=== PATIENT | female | born 1980 | race Caucasian/White ===

== ENCOUNTER 2017-04-15 16:32 | Inpatient (IN) | payer OTHER, SELFPAY ==
[2017-04-15] VITALS (7 sets, daily range): BP systolic 98–138; BP diastolic 63–83; PULSE 85–112; RESP 18–20; TEMP 36.8–38.1; O2SAT 94–96; BMI 48.4; BMI 51.1
--- NOTE | 2017-04-15 17:00 | EKG12_ITS ---
Test Reason : DYSRHYTHMIA Blood Pressure : / mmHG Vent. Rate : 105 BPM Atrial Rate : 105 BPM P-R Int : 174 ms QRS Dur : 104 ms QT Int : 362 ms P-R-T Axes : 020 091 116 degrees QTc Int : 478 ms AGE AND GENDER SPECIFIC ECG ANALYSIS Sinus tachycardia Consider right ventricular involvement in acute inferior infarct Abnormal ECG Confirmed by NAHID FERNANDEZ, IMTIAZ ([id number]), primer expeditor and drier PEDRO PABLO MIRAMONTES ([id number]) on 04/18/2017 1:38:54 PM Referred By: PROSPER Confirmed By:IMTIAZ WHITFIELD MD
--- NOTE | 2017-04-15 17:04 | NURSING ---
NO OLD EKGS
--- NOTE | 2017-04-15 17:30 | EKG12_ITS ---
Test Reason : REPEAT Blood Pressure : / mmHG Vent. Rate : 102 BPM Atrial Rate : 102 BPM P-R Int : 176 ms QRS Dur : 104 ms QT Int : 352 ms P-R-T Axes : 012 061 113 degrees QTc Int : 458 ms AGE AND GENDER SPECIFIC ECG ANALYSIS Sinus tachycardia Diffuse T wave inversion Consider right ventricular involvement in acute inferior infarct Abnormal ECG Confirmed by NAHID FERNANDEZ, IMTIAZ ([id number]), makeup editor PEDRO PABLO MIRAMONTES ([id number]) on 04/19/2017 12:57:55 PM Referred By: PROSPER Confirmed By:IMTIAZ WHITFIELD MD
[2017-04-15] MEDS: Acetaminophen 325 MG Tablet 650 MG PO (17:36)
[2017-04-15] MEDS: 0.9% Normal Saline 1,000 ML 1000 ML IV (17:37)
[2017-04-15] MEDS: Ondansetron 4 MG/2 ML Vial IV (17:37)
[2017-04-15 17:45] LABS: Hematocrit 38.5 % (37-47); Lymphocyte % 2.5 % (19-41); Mean Corp Hgb Conc 33.8 g/gl (32-36); Mean Corpuscular Hgb 27.7 pg (27.0-32.0); Mean Corpuscular Volume 81.9 fL (81-99); Monocyte% 1.5 % (0-10); Neutrophil % 95.4 % (47-70); Platelet Count 183 K/mm3 (150-450); RBC Distribution Width CV 14.2 % (11.6-14.6); RBC Distribution Width SD 42.6 fl (35.1-43.9); White Blood Count 21.3 K/mm3 (4.4-11.0)
[2017-04-15 17:46] LABS: Absolute Lymphocyte Count 0.53 X10^3/ul (0.83-4.51); Absolute Neutrophil Count 20.3 X10^3/uL (2.0-7.7); Basophil# 0.01 X10^3/uL; International Normalized Ratio 1.5; Lymphocyte # 0.53 X10^3/ul (4.0); Monocyte# 0.31 X10^3/uL; Prothrombin Time (Protime)PT. 17.4 SECONDS (11.7-14.9)
[2017-04-15 17:47] LABS: Differential Indicated SCAN CRITERIA MET; POSITIVE COUNT NO; POSITIVE DIFFERENTIAL YES; POSITIVE MORPHOLOGY YES; Partial Thromboplast Time 41.9 Seconds (24.1-36.2)
[2017-04-15 17:57] LABS: AST(SGOT) 27 U/L (15-37); Alanine Aminotransfer ALT/SGPT 24 U/L (13-56); Albumin, Serum 3.2 g/dL (3.2-5.0); Alkaline Phosphatase 42 U/L (45-117); Anion Gap 12 (5-15); BUN 13 mg/dL (7-18); BUN/Creat Ratio 13.8 RATIO (10-20); Chloride 98 mmol/L (98-107); Creatinine, Serum 0.94 mg/dL (0.55-1.02); EST Glomerular Filtration Rate 71 mL/min (>60); Est Glom Filt Rate - Afr Amer 86 mL/min (>60); Globulin 4.2 g/dL (2.2-4.2); Glucose 124 mg/dL (74-106); Potassium 3.3 mmol/L (3.5-5.1); Protein, Total 7.4 g/dL (6.4-8.2); Sodium Level 132 mmol/L (136-145)
[2017-04-15 18:02] LABS: Lactic Acid 1.7 mmol/L (0.4-2.0)
[2017-04-15 18:14] LABS: hCG Titer Quant., Serum < 1 mIU/mL (<9 non-preg)
--- NOTE | 2017-04-15 18:20 | NURSING ---
DR ERASTO CHENG
--- NOTE | 2017-04-15 18:31 | ED.DCSUM_ITS ---
- ER Visit Summary Date of Service: 04/15/17 Chief Complaint: Fever, chills, sweats, GI symptoms and redness left lower extremity History of Present Illness: The patient is a 36 F who presents because her right lower extremity is red and swollen. She states 3 days ago she noted a break in the skin between her left second and third toe. Last evening she had fever with chills diaphoresis and then reported having nausea, vomiting diarrhea. She reports 6 episodes of vomiting with no coffee grounds or obvious blood and 4 5 brown watery loose stools without blood or mucus. She stated this morning her temperature was 104.0?F and she noted her leg was red. She states she has orthostatic symptoms. states her appetite has been diminished. She has never had a foot or leg infection in the past. There is no history of trauma. Patient is on Metformin for polycystic ovarian syndrome. 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 She had surgery for a septal defect at the age of 6. The facility she was last at 1 year ago was contacted and they report they have no old EKGs to compare to. Physical Examination: Patient appears ill. She is tachycardic, tachypnic, febrile. She is not hypoxic. Blood pressure 136/70. Head is atraumatic normocephalic. Pupils are equal round reactive. Extraocular muscles are intact. TMs are pearly white with landmarks noted. Nares patent with no drainage. Posterior pharynx without erythema or exudate. Uvula is midline. There is no dysphonia or dysphasia. Trachea is midline. There is no stridor with auscultation of the neck. Face is flushed. Heart is rapid and regular without murmur, gallop or rub. Lungs are clear to auscultation with good mirror bilaterally. Abdomen is soft with no guarding or perineal findings. There is no CVA tenderness noted. Examination of the left lower extremity reveals cellulitis inferior the patella and is circumferential involving the left leg and foot. DP and PT pulses are palpable. There is break in the skin between the second and third toe and there is also a callus noted. There is no evidence of fungal infection. Neuro exam is nonfocal Test Results: Count is elevated 21,000. Troponin is less than 0.02. Lactate was 1.7, which is normal. Coags reveal elevated INR PTT. Hepatic profile markable for a total bili of 2.4 with a direct of 0.4. Alk phos is low. ALT and AST are normal. Serum test was negative. Electrolyte panel is remarkable for glucose of 124. Emergency Department Course and Treatment: Sepsis workup was undertaken. Appropriate blood work was ordered as well as blood cultures and she received 1 L of normal saline wide open, 6 and 50 mg of Tylenol p.o. and 4.5 g of Zosyn IV piggyback. Her first EKG was abnormal a second was obtained and reveals no change. I am in disagreement with the EKG interpretation. There is 0.[address] elevation in lead III. There is 0.[address] depression in V2 and V3. Repeat EKG is unchanged. This does not meet criteria for ST elevation IN. This may be residual effect from her septal defect repair and or viral cardiomyopathy. Treatment Plan: The hospitalist was contacted for full admission to the hospital Disposition: Admit Impression: 1. Sepsis 2. Left leg and foot cellulitis 3. Hyperglycemia 3. Elevated bilirubin 4. Abnormal EKG uncertain etiology 5. History of viral cardiomyopathy 6. Sinus tachycardia documented on monitor and EKG This note was generated with [employer] dictation software. It may contain incorrect words, spelling, and punctuation that were not noted in review of the chart prior to signing ED Disposition - Plan for ED Patient: Chief Complaint: Cellulitis Referrals: Margaret Andino MD [Primary Care Provider] -
[2017-04-15 18:39] LABS: Platelet Estimate ADEQUATE (ADEQ); Vacuolated Cells 1+
[2017-04-15 18:40] LABS: Differential Comment SCANNED
[2017-04-15] MEDS: 0.9% Normal Saline 1,000 ML 150 ML IV (19:58)
--- NOTE | 2017-04-15 20:45 | PCM.HP.STD ---
Problem List (1) Sepsis Status: Acute (2) Cellulitis Status: Acute (3) Viral cardiomyopathy Status: Acute (4) Hyperglycemia Status: Acute History of Present Illness Date of Admission: 04/15/17 Chief Complaint: Sepsis secondary to cellulitis The patient is a 36 year old female w/ h/o polycystic ovary syndrome, depression, HTN, and viral cardiomyopathy admitted for sepsis secondary to left foot cellulitis. Pt had sudden onset of severe dull-aching abdominal pain yesterday in the evening hours. Nothing made it better or worse. Pain got progressively worse into the night. No radiation of pain. No new food. who ate similar food was without symptoms. She had loose watery nonbloody stool every hours and continued into the night. She also developed nausea and vomiting. She had chill. She also noted swelling in her left leg this morning. She had fever to 104.0 in the morning. She had a left foot blister that broke several days ago. She has no other compliant. Past Medical History Allergies bupropion [From Wellbutrin] Adverse Reaction (Intermediate, Verified 06/09/16 09:41) Other increased suicidal ideations aspirin [ASA] Adverse Reaction (Verified 06/09/16 09:41) Upset Stomach Home Medications: Ambulatory Orders Medication Instructions Recorded Cetirizine HCl [Zyrtec] 10 mg PO DAILY 06/09/16 Furosemide [Lasix] 20 mg PO DAILY PRN 06/09/16 Lisinopril [Zestril] 2.5 mg PO DAILY 06/09/16 Metformin HCl [Glucophage] 500 mg PO DAILY 06/09/16 Spironolactone [Aldactone] 25 mg PO DAILY 06/09/16 Trazodone HCl [Desyrel] 50 - 100 mg PO QHS 06/09/16 Venlafaxine HCl [Effexor] 225 mg PO DAILY 06/09/16 Carvedilol [Carvedilol] 25 mg PO BID 04/15/17 Surgical History: no surgical history Lives: Spouse/ Significant Other Smoking Status: Former smoker Tobacco Use: Non-smoker Alcohol: None Drugs: None - *Family History Maternal History Items: No pertinent history Review of Systems Constitutional: Reports: Chills, Fever, Weakness. Denies: Weight Change HEENT: Denies: Head Aches, Sinus Congestion, Sinus Drainage Cardiovascular: Denies: Chest Pain, Palpitations Respiratory: Denies: Cough, Shortness of breath at rest, Sputum production Gastrointestinal: Denies: Abdominal Pain, Nausea, Vomiting Genitourinary: Denies: Dysuria Musculoskeletal: Denies: Joint Pain, Joint Tenderness Skin: Reports: Rash. Denies: Wounds Neurological: Denies: Numbness, Tingling, Focal weakness Psychiatric: Denies: Anxiety, Depression, Homicidal Ideations, Suicidal Ideations Hematologic/ Lymphatic: Denies: Easy Bruising, Easy Bleeding VTE Information - Inpt Only VTE Present on Admission: No VTE Mechan Device Prophylaxis: SCD's VTE Pharm Prophylaxis ordered?: Yes Patient Problems: Active and Suspected Problems Sepsis (Acute) Cellulitis (Acute) Viral cardiomyopathy (Acute) Hyperglycemia (Acute) - Physical Exam General: Alert, Oriented x3, Cooperative HEENT: Atraumatic, PERRLA, EOMI, Normocephalic Neck: Supple, No JVD, Negative Carotid Bruits Lungs: Clear to auscultation, Normal air movement Cardiovascular: Regular rate, No murmurs Abdomen: Bowel Sounds Present, Soft, Non Tender Extremities: No edema, Capillary Refill Less than 3 Seconds, - - Left foot cellulitis Skin: No rashes, No breakdown Musculoskeletal: No Tenderness to Palpation of Joints or Extremities Neurological: Cranial nerves II-XII grossly intact Psych/Mental Status: Normal Affect, Appropriate Vital Signs Temp Pulse Resp BP Pulse Ox 98.3 F 85 18 98/63 94 04/15/17 19:40 04/15/17 19:40 04/15/17 19:40 04/15/17 19:40 04/15/17 20:10 Oxygen Delivery Method Room Air Weight: 143.7 kg Body Mass Index (BMI) 51.1 Assessment/Plan Active and Suspected Problems Sepsis (Acute) Cellulitis (Acute) Viral cardiomyopathy (Acute) Hyperglycemia (Acute) 36 year old female w/ h/o polycystic ovary syndrome, depression, HTN, and viral cardiomyopathy admitted for sepsis secondary to left foot cellulitis. 1) Sepsis secondary to eft foot cellulitis: C/w zosyn. Culture pending. Fluid resuscitation. 2) Abnormal EKG: EKG disclosed 0.5mmST elevation in lead III and 0.[address] depression in V2 and V3. H/o viral cardiomyopathy 5 years ago at the [facility]. H/o septal defect surgery when 6 year old. No chest pain. No SOB or diaphoresis. Will repeat EKG in AM. ECHO in AM. Serial trops. 3) Hyponatremia and hypokalemia: Replace potassium. Hydration. Most likely secondary diarrhea and n.v, ie GI loss. Hold diuretics. Surveillance lab in AM. 4) Polycystic ovary syndrome: C/w Metformin. 5) Chronic issues: HTN and depression: Resume home meds. 6) Prophylaxis: Heparin.
[2017-04-15] MEDS: Famotidine 20 MG Tablet PO (21:16)
[2017-04-15] MEDS: Piperacil/Tazobactam 3.375 GM/50 ML ML IV (21:16)
[2017-04-16] VITALS (11 sets, daily range): BP systolic 111–135; BP diastolic 68–95; PULSE 94–109; RESP 16–18; TEMP 36.8–38.1; O2SAT 98–100
[2017-04-16] MEDS: 0.9% NaCl Peripheral Flush Adult/Peds IV ×4 (00:10→16:36)
[2017-04-16] MEDS: Acetaminophen 325 MG Tablet 650 MG PO ×3 (00:10→16:37)
[2017-04-16] MEDS: Ondansetron 4 MG/2 ML Vial IV ×3 (00:10→16:36)
[2017-04-16 00:27] LABS: Bacteria 0 SEEN /hpf (None Seen); Mucous, Urine 0 SEEN /hpf (<or=2+); Red Blood Cells-Urine 0 SEEN /hpf (0-5)
[2017-04-16 00:33] LABS: Glucose, Dipstick Normal (Normal); Ketone-Dipstick Negative (Negative); Leukocyte Esterase-Dipstick 100 /ul (Negative); Nitrite-Dipstick Negative (Negative); Occult Blood-Urine 10 /ul (Negative); Protein-Dipstick 30 mg/dl (Negative); Urine Bilirubin Dipstick Negative (Negative); Urine Urobilinogen Normal (Normal)
[2017-04-16 00:34] LABS: Color, Urine Yellow (Yellow); Urine Clarity Clear (Clear)
[2017-04-16 00:54] LABS: Squamous Epithelial Cells - UA 25-50 SEEN /hpf (5-10); White Blood Cells 5-10 SEEN /hpf (0-5)
[2017-04-16] MEDS: 0.9% Normal Saline 1,000 ML 150 ML IV ×3 (02:30→21:19)
[2017-04-16] MEDS: Piperacil/Tazobactam 3.375 GM/50 ML ML IV ×3 (05:00→21:35)
--- NOTE | 2017-04-16 05:55 | EKG12_ITS ---
Test Reason : AM EKG Blood Pressure : / mmHG Vent. Rate : 107 BPM Atrial Rate : 107 BPM P-R Int : 174 ms QRS Dur : 104 ms QT Int : 342 ms P-R-T Axes : 016 027 090 degrees QTc Int : 456 ms Sinus tachycardia Nonspecific ST and T wave abnormality Abnormal ECG No previous ECGs available Confirmed by NAHID FERNANDEZ, IMTIAZ ([id number]), editorial assistant PEDRO PABLO MIRAMONTES ([id number]) on 04/18/2017 2:44:47 PM Referred By: DR PUENTES Confirmed By:IMTIAZ WHITFIELD MD
--- NOTE | 2017-04-16 05:55 | ECHOD_ITS ---
Reason For Study: ABN EKG Procedure This was a 2D Doppler, Color Flow transthoracic echocardiogram. Contrast injection was performed. The exam was of fair technical quality due to body habitus. Exam performed portable in patient room. Left Ventricle Normal LV size. Left ventricular systolic function is normal. The estimated ejection fraction is 60 %. No evidence for diastolic dysfunction. No regional wall motion abnormalities noted. Right Ventricle Normal RV size. Normal systolic function. Atria Normal left atrium. Normal right atrium. Mitral Valve Normal mitral valve. Tricuspid Valve Normal tricuspid valve. Mild (1+) tricuspid valve insufficiency. Pulmonary artery systolic pressure is 35 mmHg. Aortic Valve Normal aortic valve. Pulmonic Valve The pulmonic valve is not well visualized. Great Vessels Normal aortic root. The pulmonary artery is normal size. Normal inferior vena cava. Pericardium/Pleural No pericardial effusion. Medication Diluted definity 4ml given slow IV push to enhance endocardial definition. MMode/2D Measurements & Calculations LVIDd: 5.7 cm IVSd: 1.1 cm LA dimension: 4.8 cm LVIDs: 4.3 cm LVPWd: 1.2 cm RVDd: 4.8 cm FS: 23.4 % LAV(MOD-bp): 47.1 ml EDV(MOD-sp4): 151.9 ml EDV(MOD-sp2): 170.9 ml LAV(MOD-bp) Indexed: 19.4 ml/m2 ESV(MOD-sp4): 81.1 ml EF(MOD-sp2): 57.3 % LAV(MOD-sp2): 31.5 ml EF(MOD-sp4): 46.6 % LAV(MOD-sp4): 64.4 ml SV(MOD-sp4): 70.7 ml SV(MOD-sp2): 97.9 ml LA A4 area: 20.1 cm2 RA A4 area: 18.4 cm2 Doppler Measurements & Calculations MV E max aki: 168.6 cm/sec Ao V2 max: 239.3 cm/sec LV V1 max: 123.0 cm/sec MV A max aki: 135.8 cm/sec Ao max P.0 mmHg LV V1 max P.1 mmHg MV E/A: 1.2 PA V2 max: 168.1 cm/sec TR max aki: 276.5 cm/sec TR max P.6 mmHg Interpretation Summary Normal LV size. Left ventricular systolic function is normal. The estimated ejection fraction is 60 %. No evidence for diastolic dysfunction. Mild (1+) tricuspid valve insufficiency. Pulmonary artery systolic pressure is 35 mmHg. Contrast injection was performed. Ordering Physician: Matt Martinez Referring Physician: OCTAVIO DENT Performed By: Yoana Hancock, RYAN, RVT
[2017-04-16 07:58] LABS: Hematocrit 32.8 % (37-47); Hemoglobin 10.9 g/dl (12.0-15.0); Mean Corp Hgb Conc 33.2 g/gl (32-36); Mean Corpuscular Hgb 27.5 pg (27.0-32.0); Mean Corpuscular Volume 82.8 fL (81-99); Mean Platelet Vol. 10.1 fl (6.2-12.0); Platelet Count 133 K/mm3 (150-450); RBC Distribution Width CV 14.7 % (11.6-14.6); RBC Distribution Width SD 44.4 fl (35.1-43.9); Red Blood Count 3.96 M/mm3 (4.2-5.4); White Blood Count 14.3 K/mm3 (4.4-11.0)
[2017-04-16 07:59] LABS: Scan Indicated on CBC? Y/N NO
[2017-04-16] MEDS: Metoclopramide 10 MG/2 ML Vial 5 MG IV (08:05)
[2017-04-16 08:36] LABS: Anion Gap 8 (5-15); BUN 12 mg/dL (7-18); BUN/Creat Ratio 14.2 RATIO (10-20); Calcium,Total 7.1 mg/dL (8.5-10.1); Chloride 109 mmol/L (98-107); Creatinine, Serum 0.85 mg/dL (0.55-1.02); EST Glomerular Filtration Rate 81 mL/min (>60); Est Glom Filt Rate - Afr Amer 98 mL/min (>60); Estimated Creatinine Clearance 86.48 ml/min; Glucose 113 mg/dL (74-106); Potassium 3.1 mmol/L (3.5-5.1); Sodium Level 138 mmol/L (136-145)
[2017-04-16] MEDS: Lisinopril 2.5 MG Tablet PO (09:43)
[2017-04-16] MEDS: Carvedilol 25 MG Tablet PO ×2 (09:43→21:27)
[2017-04-16] MEDS: Famotidine 20 MG Tablet PO ×2 (09:43→21:35)
[2017-04-16] MEDS: Venlafaxine XR 75 MG Capsule 225 MG PO (09:43)
--- NOTE | 2017-04-16 10:28 | RAD_ITS ---
STUDY: X-RAY - LEFT FOOT CLINICAL: Female, 36 years old. Diffuse redness and edema. TECHNIQUE: AP and lateral view(s) of the foot. COMPARISON: None. FINDINGS: Normal talus, calcaneus, and tarsal bones. Normal visualized subtalar, talonavicular, calcaneocuboid, tarsal and tarsometatarsal articulations. Normal metatarsi. Normal metatarsophalangeal joint of the great toe. Normal tibial and fibular sesamoid bones. Normal interphalangeal joint of the great toe. Normal phalanges of the great toe. Normal second through fifth metatarsophalangeal joints. Normal interphalangeal joints and phalanges of the lesser toes. Diffuse soft tissue swelling. RAD/Foot 2 Views IMPRESSION: Diffuse soft tissue swelling. Electronically Signed: Jared Cox MD at 11:16 EST Tel [phone], Service support ,
--- NOTE | 2017-04-16 10:30 | RAD_ITS ---
STUDY: X-RAY - ABDOMEN/PELVIS REASON FOR EXAM: Female, 36 years old. Nausea and vomiting. TECHNIQUE: AP supine and upright views of the abdomen and pelvis. COMPARISON: None. FINDINGS: Normal visualized lung bases. There is an unremarkable bowel gas pattern. There is no demonstrated free abdominal air. The visualized liver, spleen and kidneys are grossly normal in size and morphology. Normal soft tissue structures. Normal visualized osseous structures. RAD/Abd Inc Decub and/or Erect IMPRESSION: Normal x-ray examination of the abdomen and pelvis. Electronically Signed: Jared Cox MD at 11:15 EST Tel [phone], Service support ,
[2017-04-16] MEDS: oxyCODONE 5 MG Tablet PO ×2 (11:19→21:35)
--- NOTE | 2017-04-16 11:31 | PCM.RX.CS ---
Subjective/Objective Date: 04/16/17 Time: 11:31 Antibiotic: Vancomycin Type of Consult: New start Indications for Therapy: Skin/Soft Tissue Labs: Sodium 138 mmol/L (136-145) 04/16/17 07:45 Potassium 3.1 mmol/L (3.5-5.1) L 04/16/17 07:45 Chloride 109 mmol/L (98-107) H 04/16/17 07:45 Carbon Dioxide 21.0 mmol/L (21.0-32.0) 04/16/17 07:45 Anion Gap 8 (5-15) 04/16/17 07:45 BUN 12 mg/dL (7-18) 04/16/17 07:45 Creatinine 0.85 mg/dL (0.55-1.02) 04/16/17 07:45 Est GFR (MDRD) Af Amer 98 mL/min (>60) 04/16/17 07:45 Est GFR (MDRD) Non-Af 81 mL/min (>60) 04/16/17 07:45 BUN/Creatinine Ratio 14.2 RATIO (10-20) 04/16/17 07:45 Glucose 113 mg/dL (74-106) H 04/16/17 07:45 Estimated Creatinine Clearance: 80-90 mL/min Pharmacy Plan for Drug Dosing: Goal vancomycin trough 10-15 mcg/mL. Recommend vancomycin 2500mg IV x1 load, then 2000mg IV q12h for est trough 14 mcg/mL. Check prior to 5th dose. Pharmacy Service will continue to monitor and adjust dosing as required. Pharmacy to order these labs: Trough - Vancomycin Labs to be done on (date): 04/18/17 Labs to be done (time): 10:00
--- NOTE | 2017-04-16 12:06 | MRI_ITS ---
STUDY: MRI LEFT FOREFOOT WITHOUT CONTRAST REASON FOR EXAM: Female, 36 years old. Cellulitis with ulcer at base of left third toe. TECHNIQUE: Standardized fat and water weighted pulse sequences were obtained in all 3 orthogonal planes. COMPARISON: Radiographs of the foot dated April 16, 2017 showing marked diffuse soft tissue swelling. FINDINGS: Normal metatarsophalangeal joint of the hallux. Normal tibial and fibular sesamoids, with normal sesamoids-first metatarsal articulations. Normal interphalangeal joint of the hallux. Normal proximal and distal phalanges of the great toe. Normal medial and lateral heads of the flexor hallucis brevis tendons. Normal flexor and extensor hallucis longus tendons. Normal second through fifth metatarsophalangeal (MTP) joints. Normal interphalangeal joints of the second through fifth toes. Normal proximal, middle and distal phalanges of the second through fifth toes. Normal first through fourth intermetatarsal spaces. Normal flexor and extensor tendons of the second through fifth toes. Normal visualized metatarsi. Normal intrinsic muscles of the forefoot. There is diffuse dorsal subcutaneous soft tissue edema which is compatible with cellulitis. There are no focal fluid collections (coronal short axis T2 series images 1-22, sagittal inversion recovery series images 1-22). MRI/Lower Ext/No Jt/w/o IMPRESSION: Diffuse dorsal subcutaneous soft tissue edema compatible with cellulitis. No osseous abnormality identified. Electronically Signed: Juarez Oneill MD at 16:21 EST , Service support ,
--- NOTE | 2017-04-16 12:10 | VDLE_ITS ---
Reason For Study: LEG SWELLING RIGHT LEFT CFV is compressible, spontaneous, phasic, GSV is normal. competent and demonstrates normal CFV is compressible, spontaneous, phasic, augmentation. competent, and demonstrates normal Procedure augmentation. Exam performed portable in patient room. FV is compressible, spontaneous, phasic, A preliminary report was called and/or faxed competent and demonstrates normal to PCU nurse. augmentation. POP V is compressible, spontaneous, phasic, competent and demonstrates normal augmentation. T/P Trunk is compressible. PTV is compressible. LT PerV is compressible. Interpretation Summary Deep veins of the left lower extremity are patent and compressible segmentally. There is no evidence of left lower extremity deep vein thrombosis. Valvular competence appears intact within the proximal deep venous system on the left . The left greater saphenous vein appears patent and compressible segmentally. Ordering Physician: Dameon Reyes Referring Physician: Margaret Andino Performed By: Lucy Philip RVT
--- NOTE | 2017-04-16 12:12 | PCM.PROGNOTE ---
Patient Problems: Active and Suspected Problems Sepsis (Acute) Cellulitis (Acute) Viral cardiomyopathy (Acute) Hyperglycemia (Acute) Skin ulcer of left foot with fat layer exposed (Acute) Subjective: This 36 year old female patient was consulted to podiatry for ulcer sub left 3rd toe and cellulitis to foot and lower leg. She was admitted yesterday evening though the emergency room. Patient had been experiencing some nausea, vomiting, fever, and some chills along with some stomach pain yesterday evening. She was admitted and started on antibiotics. Today she is resting comfortably in bed and says that she feels a little better today than she did yesterday. She says currently her stomach pain is not as bad and her other symptoms have lessened as well. She says that she has had some redness to her foot and lower leg in the past when she lived in [place] close to 3 years ago, and they placed her on iv antibiotics in the hospital and the symptoms slowly resolved. She denies being diabetic. She says the ulcer under the base of her left 3rd toe started as a blister that popped. Neither she or her have noticed any pus to the area. - Physical Exam General: Alert, Oriented x3, Cooperative Extremities: Capillary Refill Less than 3 Seconds, No Calf Tenderness - negative james and mccann sign on exam, Diminished Peripheral Pulses - DP and PT pulses non palpable due to edema, Edema - left lower extremity Skin: Ulcer/ Wound - Ulcer to the distal left foot at the base of the 3rd toe. Measures approximately 0.8cm x 1.8cm x 0.2 cm. Base is almost completely granular. There is no probing, tracking, undermining noted. No purulence or malodor. There is cellulitis noted to the dorsal foot and lower leg. Increase in warmth also noted. Musculoskeletal: - - Patient denies pain on palpation of ulcer site. Neurological: Sensory exam intact to light touch and pain Psych/Mental Status: Normal Affect, Appropriate Vital Signs Temp Pulse Resp BP Pulse Ox 98.9 F 104 H 16 111/80 98 04/16/17 09:25 04/16/17 10:56 04/16/17 09:25 04/16/17 09:25 04/16/17 09:25 Oxygen Delivery Method Room Air Weight: 143.7 kg Body Mass Index (BMI) 51.1 Intake and Output for Last 24 Hours 04/14/17 04/15/17 04/16/17 23:59 23:59 23:59 Intake Total 2763.3 / 2763.3 Balance 2763.3 / 2763.3 Laboratory Tests Past 24 Hrs 04/15/17 04/16/17 04/16/17 20:45 00:10 01:15 WBC RBC Hgb Hct MCV MCH MCHC RDW RDW Differential Plt Count MPV Sodium Potassium Chloride Carbon Dioxide Anion Gap BUN Creatinine Estim Creat Clear Calc Est GFR (MDRD) Af Amer Est GFR (MDRD) Non-Af BUN/Creatinine Ratio Glucose Calcium Troponin I < 0.02 < 0.02 Urine Color Yellow Urine Clarity Clear Urine pH 6.0 Ur Specific [place] 1.010 Urine Protein 30 H Urine Glucose (UA) Normal Urine Ketones Negative Urine Occult Blood 10 H Urine Nitrite Negative Urine Bilirubin Negative Urine Urobilinogen Normal Ur Leukocyte Esterase 100 H Urine RBC 0 SEEN Urine WBC 5-10 SEEN Ur Squamous Epith Cells 25-50 SEEN Urine Bacteria 0 SEEN Urine Mucus 0 SEEN S.aureus Protein A PCR MRSA (PCR) 04/16/17 04/16/17 04/16/17 07:45 07:45 11:30 WBC 14.3 H RBC 3.96 L Hgb 10.9 L Hct 32.8 L MCV 82.8 MCH 27.5 MCHC 33.2 RDW 14.7 H RDW Differential 44.4 H Plt Count 133 L MPV 10.1 Sodium 138 Potassium 3.1 L Chloride 109 H Carbon Dioxide 21.0 Anion Gap 8 BUN 12 Creatinine 0.85 Estim Creat Clear Calc 86.48 Est GFR (MDRD) Af Amer 98 Est GFR (MDRD) Non-Af 81 BUN/Creatinine Ratio 14.2 Glucose 113 H Calcium 7.1 L Troponin I < 0.02 Urine Color Urine Clarity Urine pH Ur Specific [place] Urine Protein Urine Glucose (UA) Urine Ketones Urine Occult Blood Urine Nitrite Urine Bilirubin Urine Urobilinogen Ur Leukocyte Esterase Urine RBC Urine WBC Ur Squamous Epith Cells Urine Bacteria Urine Mucus S.aureus Protein A PCR Pending MRSA (PCR) Pending Assessment/Plan Active and Suspected Problems Sepsis (Acute) Cellulitis (Acute) Viral cardiomyopathy (Acute) Hyperglycemia (Acute) Skin ulcer of left foot with fat layer exposed (Acute) Ulcer to distal left foot/ base of 3rd toe with fat layer exposed Cellulitis Patient was carefully examined and evaluated bedside. Her WBC has dropped from 21.3 to 14.3 today. Glucose slightly elevated at 113. Currently her vitals area all stable with slight increase in RR. X-rays taken of foot showed diffuse soft tissue swelling, but no abnormalities of the bone. MRI of the left foot was ordered and will follow for results. DVT screen will also be completed to rule out DVT. Blood cultures and wound culture are pending at this time. ESR and CRP also ordered. Patient currently on IV vanc and zosyn. Her ulcer site was carefully cleansed bedside with sterile saline and was then dressed using aquacel ag, 4x4's and kerlix. Patient will continue to be followed by podiatry and will continue to follow for results of tests. Please contact if any questions or concerns.
[2017-04-16 13:10] LABS: Erythrocyte Sedimentation Rate 20 mm/hr (0-20)
--- NOTE | 2017-04-16 13:20 | CASEMGMT ---
Face to Face with patient for initial transition planning/care coordination assessment. RN JOLEEN introduced self and role at [facility], pt voices understanding and consents to assessment at this time. Pt is sitting up in bed in no distress at this time. Pt A/O x4 at this time and answers all questions appropriately at this time. Care providers, pharmacy, and demographics verified. See attached link. Pt voices no further concerns/needs at this time. Advised pt to ask for CM if any further questions/concerns/needs arise, voices understanding. CM to follow for any further discharge planning/needs. PLAN[place] [facility]
[2017-04-16 13:42] LABS: M R Staph aureus DNA By PCR Negative (Negative)
[2017-04-16 13:43] LABS: Probe Check PASS; Specimen Processing Control PASS; Staph aureus DNA By PCR POSITIVE (Negative)
--- NOTE | 2017-04-16 14:12 | PCM.PROGNOTE ---
Patient Problems: Active and Suspected Problems Skin ulcer of left foot with fat layer exposed (Acute) Sepsis (Acute) Cellulitis (Acute) Viral cardiomyopathy (Acute) Hyperglycemia (Acute) Subjective: Pt is on metformin only for PCOS, no hx DM. She has had similar same sided cellulitis treated as inpatient twice about 3 years ago - she was treated with IV abx as i/p then transitioned to PO. She does not know what she was on or what type of bacteria. She does not follow podiatry. She reports pain in the effected extremity. It began as a blister that opened up on its own. She has not had any purulent drainage. She had chills overnight. She also has abdominal pain, nausea, and vomiting, and a hx of C diff. She has not been on outpatient abx leading up to this. - Physical Exam General: Alert, Oriented x3, Cooperative HEENT: Atraumatic, PERRLA, EOMI, Normocephalic Neck: Supple, No JVD, Negative Carotid Bruits Lungs: Clear to auscultation, Normal air movement Cardiovascular: Regular rate, No murmurs Abdomen: Bowel Sounds Present, Soft, Non Tender Extremities: Capillary Refill Less than 3 Seconds, Edema - with tenderness and erythema, demarcations in place. no lymphangitis appreciated. No numbness or tingling. open wound with no purulence on bottom of left foot. Skin: No rashes, No breakdown Musculoskeletal: No Tenderness to Palpation of Joints or Extremities Neurological: Cranial nerves II-XII grossly intact Psych/Mental Status: Normal Affect, Appropriate Vital Signs Temp Pulse Resp BP Pulse Ox 98.9 F 104 H 16 111/80 98 04/16/17 09:25 04/16/17 10:56 04/16/17 09:25 04/16/17 09:25 04/16/17 09:25 Oxygen Delivery Method Room Air Weight: 143.7 kg Body Mass Index (BMI) 51.1 Intake and Output for Last 24 Hours 04/14/17 04/15/17 04/16/17 23:59 23:59 23:59 Intake Total 4455.8 / 4455.8 Balance 4455.8 / 4455.8 Microbiology Past 72 Hours 04/16/17 11:22 C. difficile DNA Amplification - Final Stool Laboratory Tests Past 24 Hrs 04/15/17 04/16/17 04/16/17 20:45 00:10 01:15 WBC RBC Hgb Hct MCV MCH MCHC RDW RDW Differential Plt Count MPV ESR Sodium Potassium Chloride Carbon Dioxide Anion Gap BUN Creatinine Estim Creat Clear Calc Est GFR (MDRD) Af Amer Est GFR (MDRD) Non-Af BUN/Creatinine Ratio Glucose Calcium Troponin I < 0.02 < 0.02 C-React Prot Ext Range Urine Color Yellow Urine Clarity Clear Urine pH 6.0 Ur Specific [place] 1.010 Urine Protein 30 H Urine Glucose (UA) Normal Urine Ketones Negative Urine Occult Blood 10 H Urine Nitrite Negative Urine Bilirubin Negative Urine Urobilinogen Normal Ur Leukocyte Esterase 100 H Urine RBC 0 SEEN Urine WBC 5-10 SEEN Ur Squamous Epith Cells 25-50 SEEN Urine Bacteria 0 SEEN Urine Mucus 0 SEEN S.aureus Protein A PCR MRSA (PCR) 04/16/17 04/16/17 04/16/17 07:45 07:45 07:45 WBC 14.3 H RBC 3.96 L Hgb 10.9 L Hct 32.8 L MCV 82.8 MCH 27.5 MCHC 33.2 RDW 14.7 H RDW Differential 44.4 H Plt Count 133 L MPV 10.1 ESR 20 Sodium 138 Potassium 3.1 L Chloride 109 H Carbon Dioxide 21.0 Anion Gap 8 BUN 12 Creatinine 0.85 Estim Creat Clear Calc 86.48 Est GFR (MDRD) Af Amer 98 Est GFR (MDRD) Non-Af 81 BUN/Creatinine Ratio 14.2 Glucose 113 H Calcium 7.1 L Troponin I < 0.02 C-React Prot Ext Range Urine Color Urine Clarity Urine pH Ur Specific [place] Urine Protein Urine Glucose (UA) Urine Ketones Urine Occult Blood Urine Nitrite Urine Bilirubin Urine Urobilinogen Ur Leukocyte Esterase Urine RBC Urine WBC Ur Squamous Epith Cells Urine Bacteria Urine Mucus S.aureus Protein A PCR MRSA (PCR) 04/16/17 04/16/17 07:45 11:30 WBC RBC Hgb Hct MCV MCH MCHC RDW RDW Differential Plt Count MPV ESR Sodium Potassium Chloride Carbon Dioxide Anion Gap BUN Creatinine Estim Creat Clear Calc Est GFR (MDRD) Af Amer Est GFR (MDRD) Non-Af BUN/Creatinine Ratio Glucose Calcium Troponin I C-React Prot Ext Range 185.00 H Urine Color Urine Clarity Urine pH Ur Specific [place] Urine Protein Urine Glucose (UA) Urine Ketones Urine Occult Blood Urine Nitrite Urine Bilirubin Urine Urobilinogen Ur Leukocyte Esterase Urine RBC Urine WBC Ur Squamous Epith Cells Urine Bacteria Urine Mucus S.aureus Protein A PCR POSITIVE H MRSA (PCR) Negative Assessment/Plan Active and Suspected Problems Skin ulcer of left foot with fat layer exposed (Acute) Sepsis (Acute) Cellulitis (Acute) Viral cardiomyopathy (Acute) Hyperglycemia (Acute) 1. Acute Sepsis 2/2 Left foot cellulitis and wound - wound cultures ordered. Podiatry consulted. XRAy soft tissue swelling. Prior same sided cellulitis and hospital admission x 2 about 3 years ago. MRI is pending. Vanc and zosyn. WBC improved. CRP 185. Staph +, MRSA -. UA neg. + Tachy. T max 100.6. CRP 185, sed rate normal. LA neg. 2. Abd pain/N/V - KUB neg. Hx C diff. C diff is negative. 3. Hx Cardiomyopathy as child - some nonspecific ST segment changes - echo pending. No CP. Troponin neg. Continue Coreg. 4. Anx/dep - stable. Home meds. 5. PCOS - hold metformin. 6. HTN - coreg, JOSE. 7. Hypokalemia - replete, check mag/phos. Likely 2/2 diarrhea. 8. Hyponatremia resolved. DVT ppx: Heparin DC planning: Otherwise young and healthy. This patient was seen by Dameon Reyes PA-C under the supervision of Doctor Terrell.
[2017-04-16 14:42] LABS: Magnesium 1.3 mg/dL (1.6-2.6)
[2017-04-16 16:18] LABS: Hemoglobin A1c 5.8 % (4.2-6.3)
--- NOTE | 2017-04-16 16:30 | NURSING ---
unable to complete vitals on time per [facility] d/t patient being off floor, vitals stable at this time
[2017-04-16] MEDS: Magnesium Oxide 400 MG Tablet PO (17:55)
[2017-04-16] MEDS: traZODone 50 MG Tablet PO (21:27)
[2017-04-17] VITALS (7 sets, daily range): BP systolic 108–130; BP diastolic 56–77; PULSE 87–99; RESP 18; TEMP 37.3–38.2; O2SAT 96–100
[2017-04-17] MEDS: 0.9% Normal Saline 1,000 ML 150 ML IV ×2 (04:19→11:59)
[2017-04-17] MEDS: Acetaminophen 325 MG Tablet 650 MG PO (04:20)
[2017-04-17] MEDS: Piperacil/Tazobactam 3.375 GM/50 ML ML IV ×3 (06:01→21:25)
[2017-04-17 08:28] LABS: Hemoglobin 10.3 g/dl (12.0-15.0); Mean Corp Hgb Conc 34.3 g/gl (32-36); Mean Corpuscular Hgb 28.1 pg (27.0-32.0); Mean Corpuscular Volume 81.7 fL (81-99); Mean Platelet Vol. 10.3 fl (6.2-12.0); Platelet Count 132 K/mm3 (150-450); RBC Distribution Width CV 15.1 % (11.6-14.6); Red Blood Count 3.67 M/mm3 (4.2-5.4); White Blood Count 11.7 K/mm3 (4.4-11.0)
[2017-04-17 08:49] LABS: Anion Gap 8 (5-15); BUN 11 mg/dL (7-18); Calcium,Total 7.6 mg/dL (8.5-10.1); Chloride 105 mmol/L (98-107); Creatinine, Serum 0.84 mg/dL (0.55-1.02); EST Glomerular Filtration Rate 81 mL/min (>60); Est Glom Filt Rate - Afr Amer 98 mL/min (>60); Estimated Creatinine Clearance 87.51 ml/min; Glucose 118 mg/dL (74-106); Magnesium 1.7 mg/dL (1.6-2.6); Potassium 3.7 mmol/L (3.5-5.1); Sodium Level 134 mmol/L (136-145)
[2017-04-17 09:02] LABS: Scan Indicated on CBC? Y/N NO
--- NOTE | 2017-04-17 09:29 | PCM.PROGNOTE ---
Patient Problems: Active and Suspected Problems Skin ulcer of left foot with fat layer exposed (Acute) Sepsis (Acute) Cellulitis (Acute) Viral cardiomyopathy (Acute) Hyperglycemia (Acute) Subjective: 36 year old female was seen again today. Patient resting comfortably in her bed with her breakfast. Patient is being seen for ulcer to left foot as well as cellulitis to foot and lower leg. She said she feels better today than yesterday and that she feels like she has more energy. Currently she denies any nausea, vomiting, fever or chills. - Physical Exam General: Alert, Oriented x3, Cooperative Extremities: Capillary Refill Less than 3 Seconds, No Calf Tenderness - negative james and mccann sign, Diminished Peripheral Pulses - DP and PT pulses non palpable due to edema, Edema - bilateral lower extremity with left being worse than right Skin: Ulcer/ Wound - Ulcer to the distal left foot at the base of the 3rd toe. Measures same as yesterday. Base is almost completely granular. There is no probing, tracking, undermining noted. Hyperkeratotic rim. No purulence or malodor. There is cellulitis noted to the dorsal foot and lower leg. Increase in warmth also noted. Musculoskeletal: - - Patient deneies tenderness to foot or leg Neurological: Sensory exam intact to light touch and pain Psych/Mental Status: Normal Affect, Appropriate Vital Signs Temp Pulse Resp BP Pulse Ox 100.7 F H 92 18 108/67 98 04/17/17 03:30 04/17/17 06:54 04/17/17 03:30 04/17/17 03:30 04/17/17 03:30 Oxygen Delivery Method Room Air Weight: 143.7 kg Body Mass Index (BMI) 51.1 Intake and Output for Last 24 Hours 04/15/17 04/16/17 04/17/17 23:59 23:59 23:59 Intake Total 7018.3 / 7018.3 1349 / 1349 Balance 7018.3 / 7018.3 1349 / 1349 Microbiology Past 72 Hours 04/16/17 11:30 Gram Stain - Final Wound - Left Foot 04/16/17 11:22 C. difficile DNA Amplification - Final Stool Laboratory Tests Past 24 Hrs 04/16/17 04/16/17 04/16/17 07:45 07:45 07:45 WBC RBC Hgb Hct MCV MCH MCHC RDW RDW Differential Plt Count MPV ESR 20 Sodium Potassium Chloride Carbon Dioxide Anion Gap BUN Creatinine Estim Creat Clear Calc Est GFR (MDRD) Af Amer Est GFR (MDRD) Non-Af BUN/Creatinine Ratio Glucose Hemoglobin A1c Calcium Magnesium 1.3 L C-React Prot Ext Range 185.00 H S.aureus Protein A PCR MRSA (PCR) 04/16/17 04/16/17 04/17/17 07:45 11:30 08:13 WBC RBC Hgb Hct MCV MCH MCHC RDW RDW Differential Plt Count MPV ESR Sodium 134 L Potassium 3.7 Chloride 105 Carbon Dioxide 21.0 Anion Gap 8 BUN 11 Creatinine 0.84 Estim Creat Clear Calc 87.51 Est GFR (MDRD) Af Amer 98 Est GFR (MDRD) Non-Af 81 BUN/Creatinine Ratio 13.0 Glucose 118 H Hemoglobin A1c 5.8 Calcium 7.6 L Magnesium 1.7 C-React Prot Ext Range S.aureus Protein A PCR POSITIVE H MRSA (PCR) Negative 04/17/17 08:13 WBC 11.7 H RBC 3.67 L Hgb 10.3 L Hct 30.0 L MCV 81.7 MCH 28.1 MCHC 34.3 RDW 15.1 H RDW Differential 44.0 H Plt Count 132 L MPV 10.3 ESR Sodium Potassium Chloride Carbon Dioxide Anion Gap BUN Creatinine Estim Creat Clear Calc Est GFR (MDRD) Af Amer Est GFR (MDRD) Non-Af BUN/Creatinine Ratio Glucose Hemoglobin A1c Calcium Magnesium C-React Prot Ext Range S.aureus Protein A PCR MRSA (PCR) Assessment/Plan Active and Suspected Problems Skin ulcer of left foot with fat layer exposed (Acute) Sepsis (Acute) Cellulitis (Acute) Viral cardiomyopathy (Acute) Hyperglycemia (Acute) Ulcer to distal left foot/ base of 3rd toe with fat layer exposed Cellulitis Patient was again examined and evaluated bedside. Her WBC is 11.7 today. Glucose slightly elevated at 118. Currently her vitals are stable with temperature of 100.7. ESR 20 and CRP 185. X-rays taken of foot showed diffuse soft tissue swelling, but no abnormalities of the bone. MRI of the left foot was ordered and read as showing diffuse dorsal subcutaneous soft tissue edema compatible with cellulitis and no osseous abnormality identified. DVT screen was ordered to rule out DVT, however no results are shown from this study yet. Patient negative for c.diff. Blood culture shows growth of staph aureus. Wound culture preliminary results show rare gram positive cocci. Patient remains on IV vanc and zosyn. Her ulcer site was carefully cleansed bedside with sterile saline, and the hyperkeratotic rim surrounding the ulcer was carefully removed using a number 15 blade without incident. Hemostasis controlled using manual pressure. Site was then dressed using aquacel ag, 4x4's and kerlix. Patient will continue to be followed by podiatry while in house. Please contact if any questions or concerns.
[2017-04-17] MEDS: Famotidine 20 MG Tablet PO ×2 (09:39→21:25)
[2017-04-17] MEDS: 0.9% NaCl Peripheral Flush Adult/Peds IV (09:39)
[2017-04-17] MEDS: Venlafaxine XR 75 MG Capsule 225 MG PO (09:39)
[2017-04-17] MEDS: Lisinopril 2.5 MG Tablet PO (09:39)
[2017-04-17] MEDS: oxyCODONE 5 MG Tablet PO ×3 (09:39→22:05)
[2017-04-17] MEDS: Carvedilol 25 MG Tablet PO ×2 (09:39→21:24)
[2017-04-17] MEDS: Magnesium Oxide 400 MG Tablet PO ×2 (09:39→11:59)
[2017-04-17] MEDS: Ondansetron 4 MG/2 ML Vial IV (09:40)
--- NOTE | 2017-04-17 13:43 | PCM.PROGNOTE ---
Patient Problems: Active and Suspected Problems Skin ulcer of left foot with fat layer exposed (Acute) Sepsis (Acute) Cellulitis (Acute) Viral cardiomyopathy (Acute) Hyperglycemia (Acute) Subjective: Pt continues to have fever and chills over night. She has significant nausea and some abdominal discomfort with diarrhea still today. No vomiting. C diff test was neg. She has some pain in the left leg. Wound was redressed per podiatry this AM. - Physical Exam General: Alert, Oriented x3, Cooperative HEENT: Atraumatic, PERRLA, EOMI, Normocephalic Neck: Supple, No JVD, Negative Carotid Bruits Lungs: Clear to auscultation, Normal air movement Cardiovascular: Regular rate, No murmurs Abdomen: Bowel Sounds Present, Soft, Non Tender Extremities: No edema, Capillary Refill Less than 3 Seconds Skin: No rashes, No breakdown Musculoskeletal: No Tenderness to Palpation of Joints or Extremities Neurological: Cranial nerves II-XII grossly intact Psych/Mental Status: Normal Affect, Appropriate, Alert and oriented to time, place, person, mood and affect Vital Signs Temp Pulse Resp BP Pulse Ox 99.4 F H 94 18 115/77 100 04/17/17 09:30 04/17/17 11:09 04/17/17 09:30 04/17/17 09:30 04/17/17 09:30 Oxygen Delivery Method Room Air Weight: 143.7 kg Body Mass Index (BMI) 51.1 Intake and Output for Last 24 Hours 04/15/17 04/16/17 04/17/17 23:59 23:59 23:59 Intake Total 7018.3 / 7018.3 2789.2 / 2789.2 Balance 7018.3 / 7018.3 2789.2 / 2789.2 Microbiology Past 72 Hours 04/16/17 11:30 Gram Stain - Final Wound - Left Foot Wound Culture - Preliminary Staphylococcus aureus Streptococcus group C 04/16/17 11:22 C. difficile DNA Amplification - Final Stool Laboratory Tests Past 24 Hrs 04/16/17 04/16/17 04/16/17 07:45 07:45 11:30 WBC RBC Hgb Hct MCV MCH MCHC RDW RDW Differential Plt Count MPV Sodium Potassium Chloride Carbon Dioxide Anion Gap BUN Creatinine Estim Creat Clear Calc Est GFR (MDRD) Af Amer Est GFR (MDRD) Non-Af BUN/Creatinine Ratio Glucose Hemoglobin A1c 5.8 Calcium Magnesium 1.3 L S.aureus Protein A PCR POSITIVE H MRSA (PCR) Negative 04/17/17 04/17/17 08:13 08:13 WBC 11.7 H RBC 3.67 L Hgb 10.3 L Hct 30.0 L MCV 81.7 MCH 28.1 MCHC 34.3 RDW 15.1 H RDW Differential 44.0 H Plt Count 132 L MPV 10.3 Sodium 134 L Potassium 3.7 Chloride 105 Carbon Dioxide 21.0 Anion Gap 8 BUN 11 Creatinine 0.84 Estim Creat Clear Calc 87.51 Est GFR (MDRD) Af Amer 98 Est GFR (MDRD) Non-Af 81 BUN/Creatinine Ratio 13.0 Glucose 118 H Hemoglobin A1c Calcium 7.6 L Magnesium 1.7 S.aureus Protein A PCR MRSA (PCR) Assessment/Plan Active and Suspected Problems Skin ulcer of left foot with fat layer exposed (Acute) Sepsis (Acute) Cellulitis (Acute) Viral cardiomyopathy (Acute) Hyperglycemia (Acute) 1. Acute Sepsis 2/2 Left foot cellulitis and wound - Podiatry following. MRSA neg, MSSA positive. Fever 100.7 this AM. Final wound cultures pending. Continue zosyn, vanc DC'd. Cultures with staph and group C strep. Leukocytosis improving. Still febrile. XR and MRI neg for osteo. ESR normal, CRP elevated. 2. Abd pain/N/V/Diarrhea - KUB neg. Hx C diff. C diff is negative. Added phenergen and probiotic. 3. Hx Cardiomyopathy as child - some nonspecific ST segment changes. Echo normal. DC telemetry. No CP. Troponin neg. Continue Coreg. 4. Anx/dep - stable. Home meds. 5. PCOS - hold metformin. Restart when abdominal discomfort improved. 6. HTN - coreg, JOSE. 7. Hypokalemia - resolved. 8. Hyponatremia - mild. DC IV fluids. 9. Hypomagnesemia - resolved DVT ppx: Heparin DC planning: Otherwise young and healthy. Home when stable. This patient was seen by Dameon Reyes PA-C under the supervision of Doctor Terrell.
[2017-04-17] MEDS: Fluconazole 100 MG Tablet 200 MG PO (22:45)
[2017-04-18 03:20] VITALS: BP 99/68; PULSE 86; RESP 18; TEMP 37; O2SAT 95
[2017-04-18] MEDS: Piperacil/Tazobactam 3.375 GM/50 ML ML IV (05:46)
[2017-04-18] MEDS: 0.9% NaCl Peripheral Flush Adult/Peds IV ×2 (05:54→11:42)
[2017-04-18] MEDS: oxyCODONE 5 MG Tablet PO ×3 (06:05→20:08)
[2017-04-18 06:22] LABS: Absolute Lymphocyte Count 1.23 X10^3/ul (0.83-4.51); Basophil# 0.01 X10^3/uL; Basophil% 0.1 % (0-1); Eosinophil# 0.01 X10^3/uL; Eosinophils% 0.1 % (0-5); Hematocrit 27.6 % (37-47); Hemoglobin 9.3 g/dl (12.0-15.0); Lymphocyte # 1.23 X10^3/ul (4.0); Lymphocyte % 13.5 % (19-41); Mean Corp Hgb Conc 33.7 g/gl (32-36); Mean Corpuscular Hgb 27.7 pg (27.0-32.0); Mean Corpuscular Volume 82.1 fL (81-99); Mean Platelet Vol. 10.5 fl (6.2-12.0); Monocyte# 0.85 X10^3/uL; Monocyte% 9.3 % (0-10); Neutrophil # 6.95 X10^3/uL (2.7-7.7); Platelet Count 139 K/mm3 (150-450); RBC Distribution Width CV 15.2 % (11.6-14.6); RBC Distribution Width SD 44.4 fl (35.1-43.9); Red Blood Count 3.36 M/mm3 (4.2-5.4); White Blood Count 9.1 K/mm3 (4.4-11.0)
[2017-04-18 06:27] LABS: POSITIVE COUNT NO; POSITIVE DIFFERENTIAL NO; POSITIVE MORPHOLOGY NO
[2017-04-18 06:32] LABS: Anion Gap 10 (5-15); BUN 9 mg/dL (7-18); BUN/Creat Ratio 12.8 RATIO (10-20); Calcium,Total 7.9 mg/dL (8.5-10.1); Chloride 102 mmol/L (98-107); EST Glomerular Filtration Rate 100 mL/min (>60); Est Glom Filt Rate - Afr Amer 122 mL/min (>60); Estimated Creatinine Clearance 105.01 ml/min; Glucose 113 mg/dL (74-106); Potassium 3.4 mmol/L (3.5-5.1); Sodium Level 133 mmol/L (136-145)
[2017-04-18] MEDS: Venlafaxine XR 75 MG Capsule 225 MG PO (09:16)
[2017-04-18] MEDS: Famotidine 20 MG Tablet PO ×2 (09:16→21:50)
[2017-04-18] MEDS: Lisinopril 2.5 MG Tablet PO (09:16)
[2017-04-18] MEDS: Carvedilol 25 MG Tablet PO ×2 (09:16→21:49)
[2017-04-18 09:20] VITALS: BP 112/75; PULSE 81; RESP 16; TEMP 37; O2SAT 96
[2017-04-18] MEDS: Ondansetron 4 MG/2 ML Vial IV (11:42)
--- NOTE | 2017-04-18 11:59 | PCM.PROGNOTE ---
Patient Problems: Active and Suspected Problems Skin ulcer of left foot with fat layer exposed (Acute) Sepsis (Acute) Cellulitis (Acute) Viral cardiomyopathy (Acute) Hyperglycemia (Acute) Subjective: Nausea improved with Phenergan addition yesterday. Diarrhea has slowed down as well. No further fevers or chills. Patient has significant pain and still swelling and warmth in her left lower extremity. - Physical Exam General: Alert, Oriented x3, Cooperative HEENT: Atraumatic, PERRLA, EOMI, Normocephalic Neck: Supple, No JVD, Negative Carotid Bruits Lungs: Clear to auscultation, Normal air movement Cardiovascular: Regular rate, No murmurs Abdomen: Bowel Sounds Present, Soft, Non Tender Extremities: No edema, Capillary Refill Less than 3 Seconds, Edema - LLE Skin: No breakdown, - - pain erythema and warmth continue LLE. Musculoskeletal: No Tenderness to Palpation of Joints or Extremities Neurological: Cranial nerves II-XII grossly intact Psych/Mental Status: Normal Affect, Appropriate Vital Signs Temp Pulse Resp BP Pulse Ox 98.6 F 81 16 112/75 96 04/18/17 09:20 04/18/17 09:20 04/18/17 09:20 04/18/17 09:20 04/18/17 09:20 Oxygen Delivery Method Room Air Weight: 143.7 kg Body Mass Index (BMI) 51.1 Intake and Output for Last 24 Hours 04/16/17 04/17/17 04/18/17 23:59 23:59 23:59 Intake Total 7018.3 / 7018.3 4011.0 / 4011.0 204.4 / 204.4 Balance 7018.3 / 7018.3 4011.0 / 4011.0 204.4 / 204.4 Microbiology Past 72 Hours 04/16/17 00:10 Urine Culture - Preliminary Urine, Clean Catch Culture exhibits no growth. 04/16/17 11:30 Gram Stain - Final Wound - Left Foot Wound Culture - Final Staphylococcus aureus Streptococcus group C 04/16/17 11:22 C. difficile DNA Amplification - Final Stool Laboratory Tests Past 24 Hrs 04/18/17 04/18/17 05:50 05:50 WBC 9.1 RBC 3.36 L Hgb 9.3 L Hct 27.6 L MCV 82.1 MCH 27.7 MCHC 33.7 RDW 15.2 H RDW Differential 44.4 H Plt Count 139 L MPV 10.5 Immature Gran % (Auto) 1.000 H Neut % (Auto) 76.0 H Lymph % (Auto) 13.5 L [place] % (Auto) 9.3 Eos % (Auto) 0.1 Baso % (Auto) 0.1 Absolute Neuts (auto) 7.0 Absolute Lymphs (auto) 1.23 Total Counted Not Reportable Sodium 133 L Potassium 3.4 L Chloride 102 Carbon Dioxide 21.0 Anion Gap 10 BUN 9 Creatinine 0.70 Estim Creat Clear Calc 105.01 Est GFR (MDRD) Af Amer 122 Est GFR (MDRD) Non-Af 100 BUN/Creatinine Ratio 12.8 Glucose 113 H Calcium 7.9 L Assessment/Plan Active and Suspected Problems Skin ulcer of left foot with fat layer exposed (Acute) Sepsis (Acute) Cellulitis (Acute) Viral cardiomyopathy (Acute) Hyperglycemia (Acute) 1. Acute Sepsis 2/2 Left foot cellulitis and wound -no afebrile and white count resolved. Zosyn discontinued and changed to Unasyn. Plan to transition to Augmentin as outpatient. Podiatry following. MRSA neg, MSSA positive. Cultures with MSSA and Group C strep. Pain, swelling, erythema, warmth still significant. 2. Abd pain/N/V/Diarrhea - KUB neg. Hx C diff. C diff is negative. Improved with Phenergan probiotic. 3. Hx Cardiomyopathy as child - some nonspecific ST segment changes. Echo normal. DC telemetry. No CP. Troponin neg. Continue Coreg. 4. Anx/dep - stable. Home meds. 5. PCOS - hold metformin. Restart when abdominal discomfort improved. 6. HTN - coreg, JOSE. 7. Hypokalemia - repleted. 8. Hyponatremia - mild. 9. Hypomagnesemia - resolved DVT ppx: Heparin DC planning: Otherwise young and healthy. Home when stable. Likely home tomorrow if continues to improve. This patient was seen by Dameon Reyes PA-C under the supervision of Doctor Terrell.
[2017-04-18] MEDS: Furosemide 20 MG Tablet PO (13:03)
[2017-04-18 15:10] VITALS: BP 138/48; PULSE 83; RESP 16; TEMP 37.3; O2SAT 96
--- NOTE | 2017-04-18 17:27 | PN_ITS ---
Patient Problems: Active and Suspected Problems Sepsis (Acute) Cellulitis (Acute) Viral cardiomyopathy (Acute) Hyperglycemia (Acute) Subjective: 36 year old female was seen again bedside this evening. Patient is resting comfortably in her bed. She is much more alert and aware today. She says she feels significantly better today than she did yesterday. She says she does still have some redness to her leg but her foot is clearing up. She denies any feelings of nausea, vomiting, fever, or chills currently. - Physical Exam General: Alert, Oriented x3, Cooperative Extremities: Capillary Refill Less than 3 Seconds, No Calf Tenderness - negative james and mccann sign, Diminished Peripheral Pulses - DP and PT pulses non palpable due to edema, Edema - Bilateral lower extremity edema with left being worse than right Skin: Ulcer/ Wound - Ulcer to the distal left foot at the base of the 3rd toe. No change in measurement. Base remains completely granular. There is no probing , tracking, undermining noted. No purulence or malodor. There is cellulitis noted to the lower leg. There is less erythema appreciated to the dorsal foot today. Increase in warmth still noted. Musculoskeletal: - - Patient denies pain or tenderness to left lower leg or foot Neurological: Sensory exam intact to light touch and pain Psych/Mental Status: Normal Affect, Appropriate Vital Signs Temp Pulse Resp BP Pulse Ox 99.2 F H 83 16 138/48 H 96 04/18/17 15:10 04/18/17 15:10 04/18/17 15:10 04/18/17 15:10 04/18/17 15:10 Oxygen Delivery Method Room Air Weight: 143.7 kg Body Mass Index (BMI) 51.1 Intake and Output for Last 24 Hours 04/16/17 04/17/17 04/18/17 23:59 23:59 23:59 Intake Total 7018.3 / 7018.3 4011.0 / 4011.0 719.4 / 719.4 Balance 7018.3 / 7018.3 4011.0 / 4011.0 719.4 / 719.4 Microbiology Past 72 Hours 04/16/17 00:10 Urine Culture - Preliminary Urine, Clean Catch Culture exhibits no growth. 04/16/17 11:30 Gram Stain - Final Wound - Left Foot Wound Culture - Final Staphylococcus aureus Streptococcus group C 04/16/17 11:22 C. difficile DNA Amplification - Final Stool Laboratory Tests Past 24 Hrs 04/18/17 04/18/17 05:50 05:50 WBC 9.1 RBC 3.36 L Hgb 9.3 L Hct 27.6 L MCV 82.1 MCH 27.7 MCHC 33.7 RDW 15.2 H RDW Differential 44.4 H Plt Count 139 L MPV 10.5 Immature Gran % (Auto) 1.000 H Neut % (Auto) 76.0 H Lymph % (Auto) 13.5 L [place] % (Auto) 9.3 Eos % (Auto) 0.1 Baso % (Auto) 0.1 Absolute Neuts (auto) 7.0 Absolute Lymphs (auto) 1.23 Total Counted Not Reportable Sodium 133 L Potassium 3.4 L Chloride 102 Carbon Dioxide 21.0 Anion Gap 10 BUN 9 Creatinine 0.70 Estim Creat Clear Calc 105.01 Est GFR (MDRD) Af Amer 122 Est GFR (MDRD) Non-Af 100 BUN/Creatinine Ratio 12.8 Glucose 113 H Calcium 7.9 L Assessment/Plan Active and Suspected Problems Sepsis (Acute) Cellulitis (Acute) Viral cardiomyopathy (Acute) Hyperglycemia (Acute) Ulcer to distal left foot/ base of 3rd toe with fat layer exposed Cellulitis Patient was again examined and evaluated bedside again today. Her WBC is down to 9.1 today. Glucose slightly elevated at 113. Currently her vitals are stable with temperature of 99.2 when last checked. ESR 20 and CRP 185. X-rays taken of foot showed diffuse soft tissue swelling, but no abnormalities of the bone. MRI of the left foot was ordered and read as showing diffuse dorsal subcutaneous soft tissue edema compatible with cellulitis and no osseous abnormality identified. DVT screen showed no evidence of DVT to left lower extremity. Patient negative for c.diff. Blood culture shows growth of staph aureus. New blood cultures taken today and results are pending. Wound culture preliminary results show staph aureus and step group c. Her ulcer site was carefully cleansed bedside with sterile saline. Site was then dressed using aquacel ag, 4x4's and kerlix and abhi bandages. Patient will continue to be followed by podiatry while in house. Please contact if any questions or concerns.
[2017-04-18 21:10] VITALS: BP 101/53; PULSE 77; RESP 18; TEMP 36.8; O2SAT 98
[2017-04-19 03:10] VITALS: BP 111/48; PULSE 75; RESP 18; TEMP 36.4; O2SAT 96
[2017-04-19 07:00] LABS: Absolute Lymphocyte Count 1.62 X10^3/ul (0.83-4.51); Absolute Neutrophil Count 6.2 X10^3/uL (2.0-7.7); Basophil# 0.07 X10^3/uL; Basophil% 0.8 % (0-1); Eosinophil# 0.06 X10^3/uL; Eosinophils% 0.7 % (0-5); Hematocrit 28.6 % (37-47); Hemoglobin 9.4 g/dl (12.0-15.0); Lymphocyte # 1.62 X10^3/ul (4.0); Lymphocyte % 17.7 % (19-41); Mean Corp Hgb Conc 32.9 g/gl (32-36); Mean Corpuscular Hgb 27.2 pg (27.0-32.0); Mean Corpuscular Volume 82.7 fL (81-99); Mean Platelet Vol. 10.1 fl (6.2-12.0); Monocyte# 1.02 X10^3/uL; Monocyte% 11.1 % (0-10); Neutrophil # 6.17 X10^3/uL (2.7-7.7); Neutrophil % 67.2 % (47-70); Platelet Count 136 K/mm3 (150-450); RBC Distribution Width CV 15.2 % (11.6-14.6); Red Blood Count 3.46 M/mm3 (4.2-5.4); White Blood Count 9.2 K/mm3 (4.4-11.0)
[2017-04-19 07:02] LABS: POSITIVE COUNT YES; POSITIVE DIFFERENTIAL NO; POSITIVE MORPHOLOGY YES
[2017-04-19 07:09] LABS: Anion Gap 10 (5-15); BUN 9 mg/dL (7-18); BUN/Creat Ratio 15.3 RATIO (10-20); Chloride 105 mmol/L (98-107); Creatinine, Serum 0.59 mg/dL (0.55-1.02); EST Glomerular Filtration Rate 123 mL/min (>60); Est Glom Filt Rate - Afr Amer 149 mL/min (>60); Estimated Creatinine Clearance 124.59 ml/min; Glucose 103 mg/dL (74-106); Potassium 3.3 mmol/L (3.5-5.1); Sodium Level 137 mmol/L (136-145)
[2017-04-19] MEDS: Ondansetron 4 MG/2 ML Vial IV (08:45)
[2017-04-19] MEDS: 0.9% NaCl Peripheral Flush Adult/Peds IV ×2 (08:45→11:24)
[2017-04-19] MEDS: Lisinopril 2.5 MG Tablet PO (08:53)
[2017-04-19] MEDS: Carvedilol 25 MG Tablet PO ×2 (08:53→21:19)
[2017-04-19] MEDS: Venlafaxine XR 75 MG Capsule 225 MG PO (08:53)
[2017-04-19] MEDS: Famotidine 20 MG Tablet PO ×2 (08:53→21:18)
[2017-04-19] MEDS: Furosemide 20 MG Tablet PO (09:08)
[2017-04-19 09:20] VITALS: BP 137/75; PULSE 75; RESP 18; TEMP 37.1; O2SAT 99
--- NOTE | 2017-04-19 09:24 | PCM.PN.HOSP ---
Patient Problems: Active and Suspected Problems MSSA bacteremia (Acute) Sepsis (Acute) Cellulitis (Acute) Viral cardiomyopathy (Acute) Hyperglycemia (Acute) Subjective: Patient with no acute events overnight per self and per nursing report. Patient notes that lower extremity redness is still present but has been slowly improving and swelling is mildly decreased following restart of home Lasix regimen. She is nervous about going home and also did have some anxiety over need for prolonged IV antibiotic therapy per ID recommendation. Plan for PICC line in the morning to which she is amenable and following lengthy discussion she has preference for home health as opposed to SNF. Patient denies fevers, chills, nausea, emesis, abdominal pain, chest pain or dyspnea. Objective: Physical Examination: General: awake, alert, oriented x 3 and cooperative, seated upright in bed in no apparent distress. Skin: normal color, turgor, no icterus, cyanosis, dressing in place (LLE w/ foot base 3rd toe ulcer, ~ 0.8 cm x 1.8 cm x 0.2 cm, granular base, rim debrided per Podiatry upon admission), markedly less TTP, redness slowly improving, less edema. HEENT: AT/NC, EOMI, PERRLA, MMM. Lungs: CTA bilaterally, moderate effort, mild decrease BL bases, no rales, ronchi or wheezing. Abd: soft, morbidly obese, NTTP, ND, normal BS. Heart: Regular rate with regular rhythm; no gallop, rub audible. Extremities: no cyanosis, clubbing, see skin. Neurological: patient awake, alert, oriented x 3; cognitive function intact; pupils equally reactive to light and accomodation; cranial nerves II-XII grossly normal, moving all 4 extremities although decreased LLE secondary to acute presentation, no focal deficits, strength mildly globally decreased. Psychiatric: affect appears normal, no acute evidence of depressive or anxiety feelings. Vitals/I&O's: Vital Signs Temp Pulse Resp BP Pulse Ox 97.6 F L 75 18 111/48 L 96 04/19/17 03:10 04/19/17 03:10 04/19/17 03:10 04/19/17 03:10 04/19/17 03:10 Oxygen Delivery Method Room Air Weight: 316 lb 12.868 oz Body Mass Index (BMI) 51.1 Intake and Output for Last 24 Hours 04/17/17 04/18/17 04/19/17 23:59 23:59 23:59 Intake Total 4011.0 / 4011.0 6.4 / 2025.4 360 / 360 Balance 4011.0 / 4011.0 6.4 / 2025.4 360 / 360 Microbiology Past 72 Hours 04/16/17 00:10 Urine, Clean Catch Urine Culture - Final Culture exhibits no growth. 04/16/17 11:30 Wound - Left Foot Gram Stain - Final 04/16/17 11:30 Wound - Left Foot Wound Culture - Final Staphylococcus aureus Streptococcus group C 04/16/17 11:22 Stool C. difficile DNA Amplification - Final Laboratory Results 04/19/17 06:45: WBC 9.2, RBC 3.46 L, Hgb 9.4 L, Hct 28.6 L, MCV 82.7, MCH 27.2, MCHC 32.9, RDW 15.2 H, RDW Differential 46.0 H, Plt Count 136 L, MPV 10.1, Immature Gran % (Auto) 2.500 H, Neut % (Auto) 67.2, Lymph % (Auto) 17.7 L, [place] % (Auto) 11.1 H, Eos % (Auto) 0.7, Baso % (Auto) 0.8, Absolute Neuts (auto) 6.2, Absolute Lymphs (auto) 1.62, Total Counted Not Reportable, Diff Path Review June04/19/17 06:45: Sodium 137, Potassium 3.3 L, Chloride 105, Carbon Dioxide 22.0, Anion Gap 10, BUN 9, Creatinine 0.59, Estim Creat Clear Calc 124.59, Est GFR (MDRD) Af Amer 149, Est GFR (MDRD) Non-Af 123, BUN/Creatinine Ratio 15.3, Glucose 103, Calcium 8.0 L Current Medications Acetaminophen (Tylenol) 650 mg PO Q6H PRN PRN PRN Reason: Mild Pain (1-3)/Temp > 100.7 F Last Admin: 04/17/17 04:20 Dose: 650 mg Carvedilol (Coreg) 25 mg PO BID [facility] Last Admin: 04/19/17 08:53 Dose: 25 mg Famotidine (Pepcid) 20 mg PO BID [facility] Last Admin: 03/01/18 08:53 Dose: 20 mg Fluconazole (Diflucan) 200 mg PO Q72H [facility] Stop: 04/19/17 22:01 Last Admin: 04/17/17 22:45 Dose: 200 mg Furosemide (Lasix) 20 mg PO X1 ONE Stop: 04/19/17 10:01 Last Admin: 04/19/17 09:08 Dose: 20 mg Heparin Sodium (Porcine) (Heparin Na) 5,000 unit SC BID [facility] Last Admin: 04/19/17 08:53 Dose: 5,000 units Sodium Chloride () 250 mls @ 15 mls/hr IV .[id number] PRN PRN Reason: SALINE FLUSH Ampicillin Sodium/Sulbactam (Sodium 3 gm/ Sodium Chloride) 112 mls @ 150 mls/hr IV Q6 [facility] Last Admin: 04/19/17 05:59 Dose: 150 mls/hr Lactobacillus Acidophilus (Acidophilus) 1 tablet PO TID [facility] Last Admin: 04/19/17 05:59 Dose: 1 tablet Lisinopril (Zestril) 2.5 mg PO DAILY [facility] Last Admin: 04/19/17 08:53 Dose: 2.5 mg Nutritional Formula (Lactose Free) (Ensure Enlive) 120 ml PO 4X/DAY [facility] Last Admin: 04/19/17 08:54 Dose: Not Given Ondansetron HCl (Zofran) 4 mg IV Q6H PRN PRN PRN Reason: NAUSEA Last Admin: 04/19/17 08:45 Dose: 4 mg Oxycodone HCl (Oxyir) 5 mg PO Q6H PRN PRN PRN Reason: SEVERE PAIN (6-10/10) Last Admin: 04/18/17 20:08 Dose: 5 mg Promethazine HCl (Phenergan) 12.5 mg PO Q6H PRN PRN PRN Reason: NAUSEA/VOMITING Last Admin: 04/17/17 11:59 Dose: 12.5 mg Sodium Chloride () 5 - 30 ml IV UD PRN PRN Reason: SALINE FLUSH Last Admin: 04/19/17 08:45 Dose: 10 ml Trazodone HCl (Desyrel) 100 mg PO QHS [facility] Last Admin: 04/18/17 21:51 Dose: 100 mg Vancomycin HCl (Vancomycin 125mg/5ml Susp) 125 mg PO BID [facility] Last Admin: 04/19/17 08:53 Dose: 125 mg Venlafaxine HCl (Effexor Xr) 225 mg PO DAILY [facility] Last Admin: 04/19/17 08:53 Dose: 225 mg Assessment/Plan Active and Suspected Problems MSSA bacteremia (Acute) Sepsis (Acute) Cellulitis (Acute) Viral cardiomyopathy (Acute) Hyperglycemia (Acute) The patient is a 36 y/o F w/ PMHx: Morbid Obesity, Hx Unclear Type Cardiomyopathy, HTN, Hx Clostridium Difficile Infection, PCOS, Anxiety and Depression who presents to the [facility] ED on 04/15/17 w/ history of onset dull lower abdominal discomfort, nausea, emesis and concurrent LLE redness, draining blistered wound with fever. (1) LLE Extremity Staph Aureus and Strep Group C Ulcer to distal left foot/ base of 3rd toe with fat layer exposed, LLE Cellulitis, Complicated by BL LE Chronic Lymphedema, 1/ Bld Cx w/ MSSA FELT CONTAMINANT, NOT BACTEREMIA: Admitted to [facility], plain films obtained with diffuse soft tissue swelling only, maintained initially on IV zosyn, broadened to vanc and zosyn pending MRSA assessment which was negative then vanc d/c and 04/18/17 de-escalation to unasyn-->04/19/17 de-escalation to ancef TID per ID recommendation. MRI LLE foot with diffuse dorsal subcutaneous soft tissue edema compatible with cellulitis, DVT US LLE negative. Podiatry consulted, bedside debridement edges performed, dressing changes w/ planned outpatient follow-up with [facility] upon discharge. 04/18/17 patient noted routine lasix PRN for lymphedema per her PCP thus added back regimen, continue JOSE wrap and elevation. 04/18/17 discussed with Microbiology as / bottles w/ + staph aureus, reviewed with microbiology and they initially noted concerns for additional bottles to result positive, thus given this initial concern discussed with ID, agreed with current treatment, advised d/c prophylactic treatment w/ oral vanc given c-diff history and abx concurrent usage with recent negative c-diff testing. Repeat Bld Cx had been requested 04/18/17, pending. Given only /4 now per discussion with Micro this AM, likely contaminant, not consistent with bactermia. ID consulted as noted, recommendation for 2-4 weeks abx therapy IV with planned PICC in AM. Discussed with patient and will plan for home health. Expect discharge tomorrow 04/20/17. Will plan Podiatry outpatient follow-up and [facility] follow-up. May also benefit from CHUYITA/PVRs if needed. (2) Hypokalemia: Admission K+ 3.1, supplementation given, repeat level normalized, 04/19/17 K 3.3, additional oral supplementation administered. (3) Hypomagnesium: Magnesium obtained given wound, level 1.3, will supplement with IV regimen 4 gm and repeat level 1.7, given additional supplementation given wound present. (4) Hyperglycemia: Glucose levels mildly elevated, given presentation and prior history of LE wounds/infections obtained HgBA1c level, 5.8%. (5) Abdominal Discomfort, Nausea, Emesis, Diarrhea: Possible gastroenteritis, versus infection, worsened by abx therapy but improving. C-difficile negative, suspect worsened by abx related, lessening loose stools. Resolved nausea, emesis, diet advanced to ADA. Given history of c-difficile placed on oral BID vanc prophylaxis while on abx therapy initially, will d/c now per ID recommendation given negative stool study. PRN anti-emetics. (6) History Prior Clostridium Difficile Colitis: Given history of c-difficile placed on oral BID vanc prophylaxis while on abx therapy initially, will d/c now per ID recommendation given negative stool study. (7) PCOS: Outpatient treated w/ metformin, denies DM hx. Renal function appropriate. (8) Morbid Obesity: Weight loss and lifestyle changes encouraged, nutrition consulted. (9) Hypertension: Continue home regimen including coreg, ACEI, lasix added back 04/18/17 given patient reported routine usage, PRN hydralazine. (10) Hx Cardiomyopathy: Unclear type, EKG non-specific ST-T wave changes, cardiac enzyme series normal, ECHO obtained w/ normal LV size, normal LV systolic function, EF 60%, no evidence of diastolic dysfunction, mild TV insufficiency, pulmonary artery systolic pressure 35 mmHg. (11) DVT Prophylaxis: SCDs, heparin. Code Visit Inpatient E&M: 28114 Subs Hosp L2
--- NOTE | 2017-04-19 09:35 | PN_ITS ---
Patient Problems: Active and Suspected Problems MSSA bacteremia (Acute) Sepsis (Acute) Cellulitis (Acute) Viral cardiomyopathy (Acute) Hyperglycemia (Acute) Subjective: Patient with no acute events overnight per self and per nursing report. Patient notes that lower extremity redness is still present but has been slowly improving and swelling is mildly decreased following restart of home Lasix regimen. She is nervous about going home and also did have some anxiety over need for prolonged IV antibiotic therapy per ID recommendation. Plan for PICC line in the morning to which she is amenable and following lengthy discussion she has preference for home health as opposed to SNF. Patient denies fevers, chills, nausea, emesis, abdominal pain, chest pain or dyspnea. Objective: Physical Examination: General: awake, alert, oriented x 3 and cooperative, seated upright in bed in no apparent distress. Skin: normal color, turgor, no icterus, cyanosis, dressing in place (LLE w/ foot base 3rd toe ulcer, ~ 0.8 cm x 1.8 cm x 0.2 cm, granular base, rim debrided per Podiatry upon admission), markedly less TTP, redness slowly improving, less edema. HEENT: AT/NC, EOMI, PERRLA, MMM. Lungs: CTA bilaterally, moderate effort, mild decrease BL bases, no rales, ronchi or wheezing. Abd: soft, morbidly obese, NTTP, ND, normal BS. Heart: Regular rate with regular rhythm; no gallop, rub audible. Extremities: no cyanosis, clubbing, see skin. Neurological: patient awake, alert, oriented x 3; cognitive function intact; pupils equally reactive to light and accomodation; cranial nerves II-XII grossly normal, moving all 4 extremities although decreased LLE secondary to acute presentation, no focal deficits, strength mildly globally decreased. Psychiatric: affect appears normal, no acute evidence of depressive or anxiety feelings. Vitals/I&O's: Vital Signs Temp Pulse Resp BP Pulse Ox 97.6 F L 75 18 111/48 L 96 04/19/17 03:10 04/19/17 03:10 04/19/17 03:10 04/19/17 03:10 04/19/17 03:10 Oxygen Delivery Method Room Air Weight: 316 lb 12.868 oz Body Mass Index (BMI) 51.1 Intake and Output for Last 24 Hours 04/17/17 04/18/17 04/19/17 23:59 23:59 23:59 Intake Total 4011.0 / 4011.0 6.4 / 2025.4 360 / 360 Balance 4011.0 / 4011.0 6.4 / 2025.4 360 / 360 Microbiology Past 72 Hours 04/16/17 00:10 Urine, Clean Catch Urine Culture - Final Culture exhibits no growth. 04/16/17 11:30 Wound - Left Foot Gram Stain - Final 04/16/17 11:30 Wound - Left Foot Wound Culture - Final Staphylococcus aureus Streptococcus group C 04/16/17 11:22 Stool C. difficile DNA Amplification - Final Laboratory Results 04/19/17 06:45: WBC 9.2, RBC 3.46 L, Hgb 9.4 L, Hct 28.6 L, MCV 82.7, MCH 27.2, MCHC 32.9, RDW 15.2 H, RDW Differential 46.0 H, Plt Count 136 L, MPV 10.1, Immature Gran % (Auto) 2.500 H, Neut % (Auto) 67.2, Lymph % (Auto) 17.7 L, [place] % (Auto) 11.1 H, Eos % (Auto) 0.7, Baso % (Auto) 0.8, Absolute Neuts (auto) 6.2 , Absolute Lymphs (auto) 1.62, Total Counted Not Reportable, Diff Path Review June04/19/17 06:45: Sodium 137, Potassium 3.3 L, Chloride 105, Carbon Dioxide 22.0, Anion Gap 10, BUN 9, Creatinine 0.59, Estim Creat Clear Calc 124.59, Est GFR ( MDRD) Af Amer 149, Est GFR (MDRD) Non-Af 123, BUN/Creatinine Ratio 15.3, Glucose 103, Calcium 8.0 L Current Medications Acetaminophen (Tylenol) 650 mg PO Q6H PRN PRN PRN Reason: Mild Pain (1-3)/Temp > 100.7 F Last Admin: 04/17/17 04:20 Dose: 650 mg Carvedilol (Coreg) 25 mg PO BID [facility] Last Admin: 04/19/17 08:53 Dose: 25 mg Famotidine (Pepcid) 20 mg PO BID [facility] Last Admin: 03/01/18 08:53 Dose: 20 mg Fluconazole (Diflucan) 200 mg PO Q72H [facility] Stop: 04/19/17 22:01 Last Admin: 04/17/17 22:45 Dose: 200 mg Furosemide (Lasix) 20 mg PO X1 [facility] Stop: 04/19/17 10:01 Last Admin: 04/19/17 09:08 Dose: 20 mg Heparin Sodium (Porcine) (Heparin Na) 5,000 unit SC BID [facility] Last Admin: 04/19/17 08:53 Dose: 5,000 units Sodium Chloride () 250 mls @ 15 mls/hr IV .[id number] PRN PRN Reason: SALINE FLUSH Ampicillin Sodium/Sulbactam (Sodium 3 gm/ Sodium Chloride) 112 mls @ 150 mls/ hr IV Q6 [facility] Last Admin: 04/19/17 05:59 Dose: 150 mls/hr Lactobacillus Acidophilus (Acidophilus) 1 tablet PO TID [facility] Last Admin: 04/19/17 05:59 Dose: 1 tablet Lisinopril (Zestril) 2.5 mg PO DAILY [facility] Last Admin: 04/19/17 08:53 Dose: 2.5 mg Nutritional Formula (Lactose Free) (Ensure Enlive) 120 ml PO 4X/DAY [facility] Last Admin: 04/19/17 08:54 Dose: Not Given Ondansetron HCl (Zofran) 4 mg IV Q6H PRN PRN PRN Reason: NAUSEA Last Admin: 04/19/17 08:45 Dose: 4 mg Oxycodone HCl (Oxyir) 5 mg PO Q6H PRN PRN PRN Reason: SEVERE PAIN (6-10/10) Last Admin: 04/18/17 20:08 Dose: 5 mg Promethazine HCl (Phenergan) 12.5 mg PO Q6H PRN PRN PRN Reason: NAUSEA/VOMITING Last Admin: 04/17/17 11:59 Dose: 12.5 mg Sodium Chloride () 5 - 30 ml IV UD PRN PRN Reason: SALINE FLUSH Last Admin: 04/19/17 08:45 Dose: 10 ml Trazodone HCl (Desyrel) 100 mg PO QHS [facility] Last Admin: 04/18/17 21:51 Dose: 100 mg Vancomycin HCl (Vancomycin 125mg/5ml Susp) 125 mg PO BID [facility] Last Admin: 04/19/17 08:53 Dose: 125 mg Venlafaxine HCl (Effexor Xr) 225 mg PO DAILY [facility] Last Admin: 04/19/17 08:53 Dose: 225 mg Assessment/Plan Active and Suspected Problems MSSA bacteremia (Acute) Sepsis (Acute) Cellulitis (Acute) Viral cardiomyopathy (Acute) Hyperglycemia (Acute) The patient is a 36 y/o F w/ PMHx: Morbid Obesity, Hx Unclear Type Cardiomyopathy, HTN, Hx Clostridium Difficile Infection, PCOS, Anxiety and Depression who presents to the [facility] ED on 04/15/17 w/ history of onset dull lower abdominal discomfort, nausea, emesis and concurrent LLE redness, draining blistered wound with fever. (1) LLE Extremity Staph Aureus and Strep Group C Ulcer to distal left foot/ base of 3rd toe with fat layer exposed, LLE Cellulitis, Complicated by BL LE Chronic Lymphedema, 1/ Bld Cx w/ MSSA FELT CONTAMINANT, NOT BACTEREMIA: Admitted to [facility], plain films obtained with diffuse soft tissue swelling only, maintained initially on IV zosyn, broadened to vanc and zosyn pending MRSA assessment which was negative then vanc d/c and 04/18/17 de-escalation to unasyn- ->04/19/17 de-escalation to ancef TID per ID recommendation. MRI LLE foot with diffuse dorsal subcutaneous soft tissue edema compatible with cellulitis, DVT US LLE negative. Podiatry consulted, bedside debridement edges performed, dressing changes w/ planned outpatient follow-up with [facility] upon discharge. patient noted routine lasix PRN for lymphedema per her PCP thus added back regimen, continue JOSE wrap and elevation. 04/18/17 discussed with Microbiology as / bottles w/ + staph aureus, reviewed with microbiology and they initially noted concerns for additional bottles to result positive, thus given this initial concern discussed with ID, agreed with current treatment, advised d/c prophylactic treatment w/ oral vanc given c-diff history and abx concurrent usage with recent negative c-diff testing. Repeat Bld Cx had been requested 04/18, pending. Given only /4 now per discussion with Micro this AM, likely contaminant, not consistent with bactermia. ID consulted as noted, recommendation for 2-4 weeks abx therapy IV with planned PICC in AM. Discussed with patient and will plan for home health. Expect discharge tomorrow 04/20/17. Will plan Podiatry outpatient follow-up and Wound Care Center follow-up. May also benefit from CHUYITA/PVRs if needed. (2) Hypokalemia: Admission K+ 3.1, supplementation given, repeat level normalized, 04/19/17 K 3.3, additional oral supplementation administered. (3) Hypomagnesium: Magnesium obtained given wound, level 1.3, will supplement with IV regimen 4 gm and repeat level 1.7, given additional supplementation given wound present. (4) Hyperglycemia: Glucose levels mildly elevated, given presentation and prior history of LE wounds/infections obtained HgBA1c level, 5.8%. (5) Abdominal Discomfort, Nausea, Emesis, Diarrhea: Possible gastroenteritis, versus infection, worsened by abx therapy but improving. C-difficile negative, suspect worsened by abx related, lessening loose stools. Resolved nausea, emesis , diet advanced to ADA. Given history of c-difficile placed on oral BID vanc prophylaxis while on abx therapy initially, will d/c now per ID recommendation given negative stool study. PRN anti-emetics. (6) History Prior Clostridium Difficile Colitis: Given history of c-difficile placed on oral BID vanc prophylaxis while on abx therapy initially, will d/c now per ID recommendation given negative stool study. (7) PCOS: Outpatient treated w/ metformin, denies DM hx. Renal function appropriate. (8) Morbid Obesity: Weight loss and lifestyle changes encouraged, nutrition consulted. (9) Hypertension: Continue home regimen including coreg, ACEI, lasix added back 04/18/17 given patient reported routine usage, PRN hydralazine. (10) Hx Cardiomyopathy: Unclear type, EKG non-specific ST-T wave changes, cardiac enzyme series normal, ECHO obtained w/ normal LV size, normal LV systolic function, EF 60%, no evidence of diastolic dysfunction, mild TV insufficiency, pulmonary artery systolic pressure 35 mmHg. (11) DVT Prophylaxis: SCDs, heparin. Code Visit Inpatient E&M: 79837 Subs Hosp L2
--- NOTE | 2017-04-19 10:15 | NURSING ---
wound photo: left plantar foot
--- NOTE | 2017-04-19 10:16 | NURSING ---
wound photo: redness SHINE
--- NOTE | 2017-04-19 10:30 | CASEMGMT ---
Addendum entered by Annie Don 04/19/17 15:35: Received a call from Jack at [facility] stating that the referral for pt was sent to her and she asked if this [facility] could send more clinicals at this time. . . Clinicals faxed at this time and updated Jack that pt to possibly be discharged tomorrow, voices understanding. Munira LAMBERT CM Original Note: Addendum entered by Annie Don 04/19/17 15:24: Per Basil BAZZI, pt has thought about IV therapy and is much more calm at this time and states would like HHC set up and pt would like to go home. This RN CM to room to speak with pt regarding the same and pt states that her and her are teachable and she states that she would like to go home with C for iv therapy and wound care. Advised pt that it usually takes about 24 hours to set up HHC and infusion therapy, voices understanding. Pt voices no further questions/concerns at this time. Call placed to [facility] (PH: [phone]/ ) to set up infusion and for them to set up HHC for pt's iv therapy and wound care. Referrals faxed for both at this time. Munira LAMBERT CM Original Note: Per Dr. Griffith, pt will need to be on IV Cefazolin every 8 hours for the next 2-[address] Griffith, pt is very upset at this time and states will be unable to complete IV therapy and that her is not teachable at this time. Per Dr. Griffith, pt would like SNF placement at this time. Basil BAZZI aware at this time and states will go in to speak with pt. Munira LAMBERT CM
[2017-04-19] MEDS: oxyCODONE 5 MG Tablet PO ×2 (11:24→21:19)
[2017-04-19] MEDS: Diphenoxylate/Atrop 1 Tablet 2 TABLET PO (11:24)
--- NOTE | 2017-04-19 11:56 | PCM.HP.ID ---
Problem List (1) MSSA bacteremia Status: Acute Reason for Consult: mssa Consulted by: Dr. Tejada History of Present Illness: The patient is a 36 year old F with h/o PCOS who presented 04/15 with one day h/o L foot redness/pain/swelling associated with n/v/d and chills. Has some neuropathy in feet, developed blister. Past h/o cellulitis, but no abscess or MRSA. Came to ED, podiatry consulted. Bcx grew MSSA, wound cx grew strep and MSSA. On unasyn, feeling better. No other focal joint pain. N/v/d/ improved. Cdiff neg, so po vanc was stopped. Full ROS performed and neg except as noted above. - Medical History Allergies/Adverse Reactions: Allergies bupropion [From Wellbutrin] Adverse Reaction (Intermediate, Verified 06/09/16 09:41) Other increased suicidal ideations aspirin [ASA] Adverse Reaction (Verified 06/09/16 09:41) Upset Stomach Home Medications: Ambulatory Orders Medication Instructions Recorded Cetirizine HCl [Zyrtec] 10 mg PO DAILY 06/09/16 Furosemide [Lasix] 20 mg PO DAILY PRN 06/09/16 Lisinopril [Zestril] 2.5 mg PO DAILY 06/09/16 Metformin HCl [Glucophage] 500 mg PO DAILY 06/09/16 Spironolactone [Aldactone] 25 mg PO DAILY 06/09/16 Trazodone HCl [Desyrel] 50 - 100 mg PO QHS 06/09/16 Venlafaxine HCl [Effexor] 225 mg PO DAILY 06/09/16 Carvedilol [Carvedilol] 25 mg PO BID 04/15/17 - Social History SMOKING STATUS:: Former smoker Vital Signs Temp Pulse Resp BP Pulse Ox 98.7 F 75 18 137/75 H 99 04/19/17 09:20 04/19/17 09:20 04/19/17 09:20 04/19/17 09:20 04/19/17 09:20 Oxygen Delivery Method Room Air Weight: 143.7 kg Body Mass Index (BMI) 51.1 Microbiology Past 72 Hours 04/16/17 00:10 Urine Culture - Final Urine, Clean Catch Culture exhibits no growth. 04/16/17 11:30 Gram Stain - Final Wound - Left Foot Wound Culture - Final Staphylococcus aureus Streptococcus group C 04/16/17 11:22 C. difficile DNA Amplification - Final Stool Laboratory Tests Past 24 Hrs 04/19/17 04/19/17 06:45 06:45 WBC 9.2 RBC 3.46 L Hgb 9.4 L Hct 28.6 L MCV 82.7 MCH 27.2 MCHC 32.9 RDW 15.2 H RDW Differential 46.0 H Plt Count 136 L MPV 10.1 Immature Gran % (Auto) 2.500 H Neut % (Auto) 67.2 Lymph % (Auto) 17.7 L Door % (Auto) 11.1 H Eos % (Auto) 0.7 Baso % (Auto) 0.8 Absolute Neuts (auto) 6.2 Absolute Lymphs (auto) 1.62 Total Counted Not Reportable Diff Path Review May foll Sodium 137 Potassium 3.3 L Chloride 105 Carbon Dioxide 22.0 Anion Gap 10 BUN 9 Creatinine 0.59 Estim Creat Clear Calc 124.59 Est GFR (MDRD) Af Amer 149 Est GFR (MDRD) Non-Af 123 BUN/Creatinine Ratio 15.3 Glucose 103 Calcium 8.0 L - Other Studies Radiology: [] reviewed Other Studies: [] Route of nutrition/ use of supplements: [] Nutritional Intake: [] IV Site: [] Myles Catheter: [] - Physical Exam General: Alert, Oriented x3, Cooperative, No apparent distress HEENT: Atraumatic, PERRLA, EOMI Neck: Supple, No Nodes Lungs: Clear to auscultation, Normal air movement Cardiovascular: Regular rate, Regular Rhythm, No murmurs Abdomen: Bowel Sounds Present, Soft, Non Tender, Non-Distended Extremities: Edema Skin: - - Improving redness of L lower leg with plantar wound IV Site: Peripheral, without redness Musculoskeletal: No Tenderness to Palpation of Joints or Extremities Neurological: Cranial nerves II-XII grossly intact - Assessment/Plan Antibiotics: [] Assessment/Plan: [] Active and Suspected Problems Sepsis (Acute) Cellulitis (Acute) Viral cardiomyopathy (Acute) Hyperglycemia (Acute) Sepsis due to MSSA bacteremia from L foot infection and LLE cellulitis - wound cx with MSSA and strep. TTE with no veg. No sign of endocarditis on exam. Bcx repeat 04/18 and are pending. Repeat bcx x1 today. No sign of osteo of L foot on MRI, Dr. Lezama following. Reviewed wound photos. Change unasyn to cefazolin for narrower staph and strep coverage. Plan on midline tomorrow if bcx stay negative. Plan is for 2-4 weeks of iv cefazolin 2gm q8h with weekly bmp and cbc. Pt is tearful and upset about idea of home iv abx, would consider ECF placement as an alternative. Thank you, will follow, d/w Dr. Tejada and family independence case manager.
[2017-04-19] MEDS: Cefazolin 2 GM in 0.9% Normal Saline 100 ML IV ×2 (13:49→21:18)
[2017-04-19 13:50] LABS: Pathologist Review Reviewed
[2017-04-19 15:30] VITALS: BP 102/71; PULSE 74; RESP 16; TEMP 36.3; O2SAT 99
[2017-04-19] MEDS: Acetaminophen 325 MG Tablet 650 MG PO (15:36)
--- NOTE | 2017-04-19 16:10 | CASEMGMT ---
Received a call from Jack at Rx and she states that they set pt up with an RN from [facility] and that they will place call to pt to set up delivery of supplies for this evening if able. Jack requests that PICC line notes be faxed once placed. Munira LAMBERT CM
[2017-04-19 21:25] VITALS: BP 119/64; PULSE 78; RESP 18; TEMP 36.8; O2SAT 100
[2017-04-20 03:25] VITALS: BP 106/68; PULSE 78; RESP 18; TEMP 36.7; O2SAT 96
[2017-04-20] MEDS: 0.9% NaCl Peripheral Flush Adult/Peds IV (06:00)
[2017-04-20] MEDS: Cefazolin 2 GM in 0.9% Normal Saline 100 ML IV ×2 (06:00→14:00)
[2017-04-20 06:24] LABS: Hemoglobin 9.4 g/dl (12.0-15.0); Mean Corp Hgb Conc 33.6 g/gl (32-36); Mean Corpuscular Hgb 27.6 pg (27.0-32.0); Mean Corpuscular Volume 82.1 fL (81-99); Mean Platelet Vol. 10.8 fl (6.2-12.0); Platelet Count 169 K/mm3 (150-450); RBC Distribution Width CV 14.9 % (11.6-14.6); RBC Distribution Width SD 43.5 fl (35.1-43.9); Red Blood Count 3.41 M/mm3 (4.2-5.4); Scan Indicated on CBC? Y/N NO; White Blood Count 8.6 K/mm3 (4.4-11.0)
[2017-04-20 06:36] LABS: Anion Gap 8 (5-15); BUN 7 mg/dL (7-18); BUN/Creat Ratio 12.1 RATIO (10-20); Calcium,Total 8.3 mg/dL (8.5-10.1); Chloride 103 mmol/L (98-107); Creatinine, Serum 0.58 mg/dL (0.55-1.02); EST Glomerular Filtration Rate 125 mL/min (>60); Est Glom Filt Rate - Afr Amer 152 mL/min (>60); Estimated Creatinine Clearance 126.74 ml/min; Glucose 98 mg/dL (74-106); Potassium 3.4 mmol/L (3.5-5.1); Sodium Level 135 mmol/L (136-145)
[2017-04-20 09:30] VITALS: BP 104/66; PULSE 81; RESP 16; TEMP 36.8; O2SAT 96
[2017-04-20] MEDS: Famotidine 20 MG Tablet PO (10:07)
[2017-04-20] MEDS: Carvedilol 25 MG Tablet PO (10:07)
[2017-04-20] MEDS: Venlafaxine XR 75 MG Capsule 225 MG PO (10:07)
[2017-04-20] MEDS: oxyCODONE 5 MG Tablet PO (10:08)
[2017-04-20] MEDS: ALPRAZolam 0.5 MG Tablet PO (11:02)
--- NOTE | 2017-04-20 11:28 | CASEMGMT ---
Addendum entered by Annie Don 04/20/17 12:41: PICC line notes and wound care supply orders faxed to [facility] and PICC notes to [facility] and [facility] at this time. Call from Nannette at [facility] and she states that she is having difficulty finding in network [facility] provider that can start pt on Sunday. This RN CM asked how [facility] contracted [facility] for iv therapy and if that would work for them for wound care as they are already willing to go to home. Nannette states that she will check with [facility] and number for Naomie provided at this time. Nannette states will call this RN CM back with plan of care when obtained. Munira LAMBERT CM Original Note: Addendum entered by Annie Don 04/20/17 12:30: Received a call from Nannette at [facility] and she states she is working on getting [facility] RN set up for pt for wound care. Per Nannette at [facility], this [facility] RN has to be separate from the RN contracted to do iv therapy at this time. Nannette asking what date for start of care for wounce care [facility] RN and per Cecile, heel sander, pt's dressing changes can be every other day. Pt to be discharged today, so Nannette aware that start of care for wound care can be Sunday. She states that she will call this RN CM back with any questions/concerns. Munira LAMBERT CM Original Note: Naomie [facility] into see pt this am as they were contracted by [facility] for care. This RN JOLEEN placed call to Jack at [facility] and she states supplies were shipped to pt's home last pm and pt is set up for discharge this afternoon. Call to Naomie at [facility] and she states they have pt set up for start of care this evening for pt antibiotic dose around [id number]. Pt is still awaiting PICC line placement at this time. This RN JOLEEN will fax PICC notes to [facility] and [facility] once obtained. Pt updated on all at this time, voices understanding. Munira LAMBERT CM
--- NOTE | 2017-04-20 11:42 | PCM.PN.ID ---
Patient Problems: Active and Suspected Problems MSSA bacteremia (Acute) Sepsis (Acute) Cellulitis (Acute) Viral cardiomyopathy (Acute) Hyperglycemia (Acute) Subjective: Feeling better, leg improving, no fever, no n/v/d. Ok to go home with iv abx. - Physical Exam General: Alert, Cooperative, No apparent distress Lungs: Clear to auscultation, Normal air movement Cardiovascular: Regular rate, Regular Rhythm Abdomen: Soft, Non Tender, Non-Distended Extremities: Edema Skin: Rash Present - LLE cellulitis improving Vital Signs Temp Pulse Resp BP Pulse Ox 98.3 F 81 16 104/66 96 04/20/17 09:30 04/20/17 09:30 04/20/17 09:30 04/20/17 09:30 04/20/17 09:30 Oxygen Delivery Method Room Air Weight: 143.7 kg Body Mass Index (BMI) 51.1 Intake and Output for Last 24 Hours 04/18/17 04/19/17 04/20/17 23:59 23:59 23:59 Intake Total 2025.4 / 2025.4 2263 / 2263 240 / 240 Balance 2025.4 / 2025.4 2263 / 2263 240 / 240 Microbiology Past 72 Hours 04/16/17 00:10 Urine Culture - Final Urine, Clean Catch Culture exhibits no growth. 04/16/17 11:30 Gram Stain - Final Wound - Left Foot Wound Culture - Final Staphylococcus aureus Streptococcus group C Laboratory Tests Past 24 Hrs 04/19/17 04/20/17 04/20/17 06:45 05:55 05:55 WBC 8.6 RBC 3.41 L Hgb 9.4 L Hct 28.0 L MCV 82.1 MCH 27.6 MCHC 33.6 RDW 14.9 H RDW Differential 43.5 Plt Count 169 MPV 10.8 Diff Path Review Reviewed Sodium 135 L Potassium 3.4 L Chloride 103 Carbon Dioxide 24.0 Anion Gap 8 BUN 7 Creatinine 0.58 Estim Creat Clear Calc 126.74 Est GFR (MDRD) Af Amer 152 Est GFR (MDRD) Non-Af 125 BUN/Creatinine Ratio 12.1 Glucose 98 Calcium 8.3 L Route of nutrition/ use of supplements: [] Nutritional Intake: [] IV Site: [] Myles Catheter: [] - Assessment/Plan Antibiotics: [] Assessment/Plan: [] Active and Suspected Problems Sepsis (Acute) Cellulitis (Acute) Viral cardiomyopathy (Acute) Hyperglycemia (Acute) Sepsis due to MSSA bacteremia from L foot infection and LLE cellulitis - wound cx with MSSA and strep. TTE with no veg. No sign of endocarditis on exam. Bcx repeat 04/18 and are pending. Repeat bcx x1 today. No sign of osteo of L foot on MRI, Dr. Lezama following. Cont cefazolin for narrower staph and strep coverage. Plan on midline today. Plan is for 2-4 weeks of iv cefazolin 2gm q8h with weekly bmp and cbc. Planned stop date is 05/16/17. Rx for labs and abx written. ID follow-up prn. will follow, d/w outpatient case manager.
[2017-04-20 11:58] VITALS: BP 112/64; PULSE 76; RESP 16; TEMP 36.8; O2SAT 97
--- NOTE | 2017-04-20 12:00 | DCINST_ITS ---
- Discharge Diagnoses Current Active Problems: Current Active and Chronic Problems MSSA bacteremia (Acute) Sepsis (Acute) Cellulitis (Acute) Viral cardiomyopathy (Acute) Hyperglycemia (Acute) (1) LLE Extremity Staph Aureus and Strep Group C Ulcer to distal left foot/ base of 3rd toe with fat layer exposed, LLE Cellulitis, Complicated by BL LE Chronic Lymphedema, 1/ Bld Cx w/ MSSA Bacteremia (3) Hypomagnesium (4) Hyperglycemia, HgBA1c level, 5.8%. (5) Abdominal Discomfort, Nausea, Emesis, Diarrhea, Possible concurrent gastroenteritis versus also antibiotic associated, improved (c-diff negative) (6) History Prior Clostridium Difficile Colitis (C-diff negative) (7) PCOS (8) Morbid Obesity (9) Hypertension (10) Hx Cardiomyopathy, Viral You will use the following diet at home:: Cardiac Your food should be the consistency of: Regular Your liquids should be the consistency of: Regular/Thin Discharge Activity: - - Activity parameters per Podiatry, no driving while on narcotic therapy, advance activity once allowed per Podiatry. Noted weight bearing as tolerated. When seated or in bed elevate extremity with knee suppored above heart. May resume sexual activity in: 10-14 days Weight Bearing Status: Weight bearing as tolerated Keep extremity elevated above heart level: Left Leg Call your doctor if your incision/area has: Continuous Slow Oozing, Sudden Increased Bleeding, Increased Pain/ Swelling, Increased Redness, Foul Smelling Discharge Call your doctor if you observe: Fever of 101 or Higher, Inability to urinate, Inability to have a bowel movement, Shortness of breath, Dizziness, Fainting spells, Chest pain, Calf discomfort, Uncontrolled pain Instructions: Wound Care, Treating Diarrhea, Self-Care for Vomiting and Diarrhea, Discharge Instructions: Caring for Your Wound Additional Instructions: (1) Plan continued IV antibiotic therapy per Dr. Griffith direction (infectious disease) with home health with planned stop date 05/16/17 with weekly basic metabolic panel and complete blood count which he will review to be obtained per home health direction. (2) Continue dressing changes with home health per Podiatry instruction with ongoing dressing changes unless otherwise specified by their service with: aquacel silver placement, dry 4x4, kerlex wrap and overlap with snug JOSE wrap to keep in place. Plan follow- up with Podiatry in the office and the Wound Care Center to also address chronic lymphedema. (3) While taking antibiotic therapy please continue to take lactobacillis supplementation. Given your stool testing inpatient was negative for clostridium difficile infection you may continue to take loperamide as needed to control the diarrhea. Allergies/Adverse Reactions: Allergies bupropion [From Wellbutrin] Adverse Reaction (Intermediate, Verified 06/09/16 09 :41) Other increased suicidal ideations aspirin [ASA] Adverse Reaction (Verified 06/09/16 09:41) Upset Stomach Medications to take at Discharge Cetirizine HCl [Zyrtec] 10 mg PO DAILY 06/09/16 Furosemide [Lasix] 20 mg PO DAILY PRN 06/09/16 Lisinopril [Zestril] 2.5 mg PO DAILY 06/09/16 Metformin HCl [Glucophage] 500 mg PO DAILY 06/09/16 Spironolactone [Aldactone] 25 mg PO DAILY 06/09/16 Trazodone HCl [Desyrel] 50 - 100 mg PO QHS 06/09/16 Venlafaxine HCl [Effexor] 225 mg PO DAILY 06/09/16 Carvedilol 25 mg PO BID 04/15/17 Cefazolin 2 gm IV Q8 vial 04/20/17 Cefazolin 2 gm IV Q8 26 Days vial 04/20/17 Diphenoxylate/Atrop [Lomotil] 2 tablet PO 4X/DAY PRN PRN #30 tablet 04/20/17 Lactobacillus Acidophilus [Acidophilus] 1 tab PO TID #90 tab 04/20/17 Oxycodone [Oxyir] 5 mg PO Q6H PRN PRN 5 Days #20 tablet 04/20/17 ProMETHAzine [Phenergan] 12.5 mg PO Q6H PRN PRN #20 tab 04/20/17 The following prescriptions were given: Oxycodone [Oxyir] 5 mg PO Q6H PRN PRN 5 Days #20 tablet PRN Reason: Severe Pain (6-10/10) ProMETHAzine [Phenergan] 12.5 mg PO Q6H PRN PRN #20 tab PRN Reason: NAUSEA/VOMITING Diphenoxylate/Atrop [Lomotil] 2 tablet PO 4X/DAY PRN PRN #30 tablet PRN Reason: LOOSE STOOLS Lactobacillus Acidophilus [Acidophilus] 1 tab PO TID #90 tab Primary Care Physician: Margaret Andino MD [Primary Care Provider] - Please follow up with your Primary Care Physician in: Follow-up within 3-5 days to review admission. Please Follow Up With: Ángel Lezama DPM When: Follow-up within 1 week in their office or may see them in Wound Center. Please Follow Up With: Wound Care Center When: Plan to follow in Wound Care Center w/ Podiatry and to treat Lymphedema. Please Follow Up With: Dipak Griffith MD When: You may call his office with any questions about the antibiotics or labs. Proposed Discharge Date: 04/20/17
--- NOTE | 2017-04-20 13:01 | PCM.DC.SUM ---
Discharge Date and Diagnosis - Problem List Patient Problems: Active and Suspected Problems MSSA bacteremia (Acute) Sepsis (Acute) Cellulitis (Acute) Viral cardiomyopathy (Acute) Hyperglycemia (Acute) Date of Admission: 04/16/17 Date of Discharge: 04/20/17 - Primary Discharge Diagnosis Active and Suspected Problems MSSA bacteremia (Acute) Sepsis (Acute) Cellulitis (Acute) Viral cardiomyopathy (Acute) Hyperglycemia (Acute) (1) LLE Extremity Staph Aureus and Strep Group C Ulcer to distal left foot/ base of 3rd toe with fat layer exposed, LLE Cellulitis, Complicated by BL LE Chronic Lymphedema, 1/ Bld Cx w/ MSSA Bacteremia (3) Hypomagnesium (4) Hyperglycemia, HgBA1c level, 5.8%. (5) Abdominal Discomfort, Nausea, Emesis, Diarrhea, Possible concurrent gastroenteritis versus also antibiotic associated, improved (c-diff negative) (6) History Prior Clostridium Difficile Colitis (C-diff negative) (7) PCOS (8) Morbid Obesity (9) Hypertension (10) Hx Cardiomyopathy, Viral - Secondary Discharge Diagnosis Chronic BL LE Lymphedema History Prior Clostridium Difficile Colitis (C-diff negative) PCOS Morbid Obesity Hypertension Hx Cardiomyopathy, Viral Hospital Course and Treatment Consultations 04/18/17 15:12 Consult: Onc/Wound/dry wall installations mechanic Routine Comment: Reason for Consult:: LEFT FOOT BLISTER WAS DEBRIDED ON 04/16/CELLULITIS Podiatry Dr. Ángel Lezama Operations: None Procedures: EKG, - - Bedside debridement Ulcer Edges per Podiatry. Summary of Care Provided: The patient is a 36 y/o F w/ PMHx: Morbid Obesity, Hx Viral Cardiomyopathy, HTN, Hx Clostridium Difficile Infection, PCOS, Anxiety and Depression who presented to the [facility] ED on 04/15/17 w/ history of onset dull lower abdominal discomfort, nausea, emesis and concurrent LLE redness, draining blistered wound with fever. Patient admitted to [place], plain films obtained with diffuse soft tissue swelling only, maintained initially on IV zosyn, broadened to vanc and zosyn pending MRSA assessment which was negative then vanc d/c and 04/18/17 de-escalation to unasyn-->04/19/17 de-escalation to ancef TID per ID recommendation. MRI LLE foot with diffuse dorsal subcutaneous soft tissue edema compatible with cellulitis, DVT US LLE negative. Podiatry consulted, bedside debridement edges performed, dressing changes w/ planned outpatient follow-up with [facility] upon discharge. 04/18/17 patient noted routine lasix PRN for lymphedema per her PCP thus added back regimen, continued JOSE wrap and elevation. 04/18/17 discussed with Microbiology as 1/4 bottles w/ + staph aureus with as noted consultation with ID with despite only 1/4 confirmation given type of infection (MSSA) still considered MSSA bactermia. Repeat Bld NGTD. ID recommendation for 2-4 weeks abx therapy IV with PICC line placement performed 04/20/17 AM with continued abx until planned stop date per their service 05/16/17 with weekly BMP, CBC to be faxed to their office. Patient discharged to home with home health in place, continued IV abx therapy, dressing changes, planned follow-up with PCP, Podiatry as well as Wound Care Center for chronic lymphedema care as well. Upon presentation, as noted patient with Abdominal Discomfort, Nausea, Emesis, Diarrhea, suspected Possible gastroenteritis, that was worsened by abx therapy but improved. C-difficile negative. Once confirmed negative c-diff, patient placed on lomotil and maintained on lactobacillus supplementation. Electrolyte abnormalities corrected w/ supplementation during admission. Glucose levels mildly elevated, given presentation and prior history of LE wounds/infections obtained HgBA1c level, 5.8%. Patient also with remote viral cardiomyopathy history with EKG non-specific ST-T wave changes, cardiac enzyme series normal, ECHO obtained w/ normal LV size, normal LV systolic function, EF 60%, no evidence of diastolic dysfunction, mild TV insufficiency, pulmonary artery systolic pressure 35 mmHg. DAY OF DISCHARGE PROGRESS NOTE: Subjective: Patient without acute event overnight per self and nursing report. Continued improvement to the LLE, less painful, less edematous, resolving erythema. Less anxious with good home health plan in place. Patient denies fever, chills, nausea, emesis, abdominal pain, chest pain or dyspnea. Patient agreeable to discharge to home with home health. Patient will be discharged with follow-up with primary care physician within 3-5 days in addition to Podiatry within 1 week. Objective: T 98.3, HR 81, BP 104/66, RR 16, 96 % on RA. Physical Examination: General: awake, alert, oriented x 3 and cooperative, seated upright in bed in no apparent distress. Skin: normal color, turgor, no icterus, cyanosis, dressing in place, markedly less TTP, redness slowly improving, less edema. HEENT: AT/NC, EOMI, PERRLA, MMM. Lungs: CTA bilaterally, moderate effort, mild decrease BL bases, no rales, ronchi or wheezing. Abd: soft, morbidly obese, NTTP, ND, normal BS. Heart: Regular rate with regular rhythm; no gallop, rub audible. Extremities: no cyanosis, clubbing, see skin. Neurological: patient awake, alert, oriented x 3; cognitive function intact; pupils equally reactive to light and accomodation; cranial nerves II-XII grossly normal, moving all 4 extremities although decreased LLE secondary to acute presentation, no focal deficits, strength mildly globally decreased. Psychiatric: affect appears normal, no acute evidence of depressive or anxiety feelings. Assessment and Plan: Please see hospital summary above. Discharge Activity: - - Activity parameters per Podiatry, no driving while on narcotic therapy, advance activity once allowed per Podiatry. Noted weight bearing as tolerated. When seated or in bed elevate extremity with knee suppored above heart. May resume sexual activity in: 10-14 days Weight Bearing Status: Weight bearing as tolerated Keep extremity elevated above heart level: Left Leg Call your doctor if your incision/area has: Continuous Slow Oozing, Sudden Increased Bleeding, Increased Pain/ Swelling, Increased Redness, Foul Smelling Discharge Call your doctor if you observe: Fever of 101 or Higher, Inability to urinate, Inability to have a bowel movement, Shortness of breath, Dizziness, Fainting spells, Chest pain, Calf discomfort, Uncontrolled pain Home Medications: Medications to take at Discharge Cetirizine HCl [Zyrtec] 10 mg PO DAILY 06/09/16 Furosemide [Lasix] 20 mg PO DAILY PRN 06/09/16 Lisinopril [Zestril] 2.5 mg PO DAILY 06/09/16 Metformin HCl [Glucophage] 500 mg PO DAILY 06/09/16 Spironolactone [Aldactone] 25 mg PO DAILY 06/09/16 Trazodone HCl [Desyrel] 50 - 100 mg PO QHS 06/09/16 Venlafaxine HCl [Effexor] 225 mg PO DAILY 06/09/16 Carvedilol 25 mg PO BID 04/15/17 Cefazolin 2 gm IV Q8 vial 04/20/17 Cefazolin 2 gm IV Q8 26 Days vial 04/20/17 Diphenoxylate/Atrop [Lomotil] 2 tablet PO 4X/DAY PRN PRN #30 tablet 04/20/17 Lactobacillus Acidophilus [Acidophilus] 1 tab PO TID #90 tab 04/20/17 Oxycodone [Oxyir] 5 mg PO Q6H PRN PRN 5 Days #20 tablet 04/20/17 ProMETHAzine [Phenergan] 12.5 mg PO Q6H PRN PRN #20 tab 04/20/17 Following Prescrptions Were Given to Patient: Oxycodone [Oxyir] 5 mg PO Q6H PRN PRN 5 Days #20 tablet PRN Reason: Severe Pain (6-1010) ProMETHAzine [Phenergan] 12.5 mg PO Q6H PRN PRN #20 tab PRN Reason: NAUSEA/VOMITING Diphenoxylate/Atrop [Lomotil] 2 tablet PO 4X/DAY PRN PRN #30 tablet PRN Reason: LOOSE STOOLS Lactobacillus Acidophilus [Acidophilus] 1 tab PO TID #90 tab Primary Care Physician: Margaret Andino MD [Primary Care Provider] - Please follow up with your Primary Care Physician in: Follow-up within 3-5 days to review admission. Please Follow Up With: Ángel Lezama DPM When: Follow-up within 1 week in their office or may see them in Wound Center. Please Follow Up With: Wound Care Center When: Plan to follow in Wound Care Center w/ Podiatry and to treat Lymphedema. Please Follow Up With: Dipak Griffith MD When: You may call his office with any questions about the antibiotics or labs. Patient Instructions: Wound Care, Treating Diarrhea, Self-Care for Vomiting and Diarrhea, Discharge Instructions: Caring for Your Wound Disposition: Home with Home Health Minutes spent on discharge:: 35 Patient Condition:: Fair Meaningful Use Info Meaningful Use Diagnoses (Choose all that apply): None applicable Code Visit Inpatient E&M: 41822 Disch Hosp
--- NOTE | 2017-04-20 13:13 | DS.PCM_ITS ---
Discharge Date and Diagnosis - Problem List Patient Problems: Active and Suspected Problems MSSA bacteremia (Acute) Sepsis (Acute) Cellulitis (Acute) Viral cardiomyopathy (Acute) Hyperglycemia (Acute) Date of Admission: 04/16/17 Date of Discharge: 04/20/17 - Primary Discharge Diagnosis Active and Suspected Problems MSSA bacteremia (Acute) Sepsis (Acute) Cellulitis (Acute) Viral cardiomyopathy (Acute) Hyperglycemia (Acute) (1) LLE Extremity Staph Aureus and Strep Group C Ulcer to distal left foot/ base of 3rd toe with fat layer exposed, LLE Cellulitis, Complicated by BL LE Chronic Lymphedema, 1/ Bld Cx w/ MSSA Bacteremia (3) Hypomagnesium (4) Hyperglycemia, HgBA1c level, 5.8%. (5) Abdominal Discomfort, Nausea, Emesis, Diarrhea, Possible concurrent gastroenteritis versus also antibiotic associated, improved (c-diff negative) (6) History Prior Clostridium Difficile Colitis (C-diff negative) (7) PCOS (8) Morbid Obesity (9) Hypertension (10) Hx Cardiomyopathy, Viral - Secondary Discharge Diagnosis Chronic BL LE Lymphedema History Prior Clostridium Difficile Colitis (C-diff negative) PCOS Morbid Obesity Hypertension Hx Cardiomyopathy, Viral Hospital Course and Treatment Consultations 04/18/17 15:12 Consult: Onc/Wound/creative services writer Routine Comment: Reason for Consult:: LEFT FOOT BLISTER WAS DEBRIDED ON 04/16/CELLULITIS Podiatry Dr. Ángel Lezama Operations: None Procedures: EKG, - - Bedside debridement Ulcer Edges per Podiatry. Summary of Care Provided: The patient is a 36 y/o F w/ PMHx: Morbid Obesity, Hx Viral Cardiomyopathy, HTN , Hx Clostridium Difficile Infection, PCOS, Anxiety and Depression who presented to the [facility] ED on 04/15/17 w/ history of onset dull lower abdominal discomfort, nausea, emesis and concurrent LLE redness, draining blistered wound with fever. Patient admitted to [facility], plain films obtained with diffuse soft tissue swelling only, maintained initially on IV zosyn, broadened to vanc and zosyn pending MRSA assessment which was negative then vanc d/c and 04/18/17 de- escalation to unasyn-->04/19/17 de-escalation to ancef TID per ID recommendation. MRI LLE foot with diffuse dorsal subcutaneous soft tissue edema compatible with cellulitis, DVT US LLE negative. Podiatry consulted, bedside debridement edges performed, dressing changes w/ planned outpatient follow-up with [facility] upon discharge. 04/18/17 patient noted routine lasix PRN for lymphedema per her PCP thus added back regimen, continued JOSE wrap and elevation. 04/18/17 discussed with Microbiology as 1/4 bottles w/ + staph aureus with as noted consultation with ID with despite only 1/4 confirmation given type of infection (MSSA) still considered MSSA bactermia. Repeat Bld NGTD. ID recommendation for 2-4 weeks abx therapy IV with PICC line placement performed 04/20/17 AM with continued abx until planned stop date per their service 05/16/17 with weekly BMP, CBC to be faxed to their office. Patient discharged to home with home health in place, continued IV abx therapy, dressing changes, planned follow-up with PCP, Podiatry as well as [facility] for chronic lymphedema care as well. Upon presentation, as noted patient with Abdominal Discomfort, Nausea, Emesis, Diarrhea, suspected Possible gastroenteritis, that was worsened by abx therapy but improved. C-difficile negative. Once confirmed negative c-diff, patient placed on lomotil and maintained on lactobacillus supplementation. Electrolyte abnormalities corrected w/ supplementation during admission. Glucose levels mildly elevated, given presentation and prior history of LE wounds/infections obtained HgBA1c level, 5.8%. Patient also with remote viral cardiomyopathy history with EKG non-specific ST-T wave changes, cardiac enzyme series normal, ECHO obtained w/ normal LV size, normal LV systolic function, EF 60%, no evidence of diastolic dysfunction, mild TV insufficiency, pulmonary artery systolic pressure 35 mmHg. DAY OF DISCHARGE PROGRESS NOTE: Subjective: Patient without acute event overnight per self and nursing report. Continued improvement to the LLE, less painful, less edematous, resolving erythema. Less anxious with good home health plan in place. Patient denies fever , chills, nausea, emesis, abdominal pain, chest pain or dyspnea. Patient agreeable to discharge to home with home health. Patient will be discharged with follow-up with primary care physician within 3-5 days in addition to Podiatry within 1 week. Objective: T 98.3, HR 81, BP 104/66, RR 16, 96 % on RA. Physical Examination: General: awake, alert, oriented x 3 and cooperative, seated upright in bed in no apparent distress. Skin: normal color, turgor, no icterus, cyanosis, dressing in place, markedly less TTP, redness slowly improving, less edema. HEENT: AT/NC, EOMI, PERRLA, MMM. Lungs: CTA bilaterally, moderate effort, mild decrease BL bases, no rales, ronchi or wheezing. Abd: soft, morbidly obese, NTTP, ND, normal BS. Heart: Regular rate with regular rhythm; no gallop, rub audible. Extremities: no cyanosis, clubbing, see skin. Neurological: patient awake, alert, oriented x 3; cognitive function intact; pupils equally reactive to light and accomodation; cranial nerves II-XII grossly normal, moving all 4 extremities although decreased LLE secondary to acute presentation, no focal deficits, strength mildly globally decreased. Psychiatric: affect appears normal, no acute evidence of depressive or anxiety feelings. Assessment and Plan: Please see hospital summary above. Discharge Activity: - - Activity parameters per Podiatry, no driving while on narcotic therapy, advance activity once allowed per Podiatry. Noted weight bearing as tolerated. When seated or in bed elevate extremity with knee suppored above heart. May resume sexual activity in: 10-14 days Weight Bearing Status: Weight bearing as tolerated Keep extremity elevated above heart level: Left Leg Call your doctor if your incision/area has: Continuous Slow Oozing, Sudden Increased Bleeding, Increased Pain/ Swelling, Increased Redness, Foul Smelling Discharge Call your doctor if you observe: Fever of 101 or Higher, Inability to urinate, Inability to have a bowel movement, Shortness of breath, Dizziness, Fainting spells, Chest pain, Calf discomfort, Uncontrolled pain Home Medications: Medications to take at Discharge Cetirizine HCl [Zyrtec] 10 mg PO DAILY 06/09/16 Furosemide [Lasix] 20 mg PO DAILY PRN 06/09/16 Lisinopril [Zestril] 2.5 mg PO DAILY 06/09/16 Metformin HCl [Glucophage] 500 mg PO DAILY 06/09/16 Spironolactone [Aldactone] 25 mg PO DAILY 06/09/16 Trazodone HCl [Desyrel] 50 - 100 mg PO QHS 06/09/16 Venlafaxine HCl [Effexor] 225 mg PO DAILY 06/09/16 Carvedilol 25 mg PO BID 04/15/17 Cefazolin 2 gm IV Q8 vial 04/20/17 Cefazolin 2 gm IV Q8 26 Days vial 04/20/17 Diphenoxylate/Atrop [Lomotil] 2 tablet PO 4X/DAY PRN PRN #30 tablet 04/20/17 Lactobacillus Acidophilus [Acidophilus] 1 tab PO TID #90 tab 04/20/17 Oxycodone [Oxyir] 5 mg PO Q6H PRN PRN 5 Days #20 tablet 04/20/17 ProMETHAzine [Phenergan] 12.5 mg PO Q6H PRN PRN #20 tab 04/20/17 Following Prescrptions Were Given to Patient: Oxycodone [Oxyir] 5 mg PO Q6H PRN PRN 5 Days #20 tablet PRN Reason: Severe Pain (6-1010) ProMETHAzine [Phenergan] 12.5 mg PO Q6H PRN PRN #20 tab PRN Reason: NAUSEA/VOMITING Diphenoxylate/Atrop [Lomotil] 2 tablet PO 4X/DAY PRN PRN #30 tablet PRN Reason: LOOSE STOOLS Lactobacillus Acidophilus [Acidophilus] 1 tab PO TID #90 tab Primary Care Physician: Margaret Andino MD [Primary Care Provider] - Please follow up with your Primary Care Physician in: Follow-up within 3-5 days to review admission. Please Follow Up With: Ángel Lezama DPM When: Follow-up within 1 week in their office or may see them in Wound Center. Please Follow Up With: Wound Care Center When: Plan to follow in Wound Care Center w/ Podiatry and to treat Lymphedema. Please Follow Up With: Dipak Griffith MD When: You may call his office with any questions about the antibiotics or labs. Patient Instructions: Wound Care, Treating Diarrhea, Self-Care for Vomiting and Diarrhea, Discharge Instructions: Caring for Your Wound Disposition: Home with Home Health Minutes spent on discharge:: 35 Patient Condition:: Fair Meaningful Use Info Meaningful Use Diagnoses (Choose all that apply): None applicable Code Visit Inpatient E&M: 68126 Disch Hosp
--- NOTE | 2017-04-20 16:13 | CASEMGMT ---
This RN CM has not received call back from [facility] regarding HHC for wound care. Call placed to [facility] at this time and they state that they are still waiting on 2 [facility] to call them back to see if they can start care for pt on sunday, he states if they can't find anyone for sunday then it will be sunday. He states that they will be in till 8pm tonight and will have someone senior reservations agent on the weekend. He states that they will leave message with this RN CM regarding plan. Pt updated on all at this time and voices understanding. Mishel LAMBERT states that she will change dressing for pt prior to discharge. This RN CM advised pt that I would be in contact with her if the HHC would not be out on Sunday, pt voices understanding. Pt states concerns about showering with dressing and Mishel LAMBERT advised her not to get left leg wet until after [facility] wound visit, pt voices understanding. Pt voices no further concerns/needs at this time. Pt to be discharged with pending wound care HHC. This RN JOLEEN to follow. Munira LAMBERT CM
--- NOTE | 2017-04-20 16:25 | CASEMGMT ---
Received call from Nannette at [facility] and she is asking if pt discharge could wait till Sunday as they cannot find an in-network provider to do start of care of [facility] wound care on sunday. Advised Nannette that pt is being discharged at this time, voices understanding. Nannette then asks if pt could have start of care on sunday. This RN CM advised Nannette again that pt is supposed to have dressing changes every other day which would mean that pt would need start of care on sunday. Nannette then states that she can start looking at out of network [facility] providers at this time. This RN CM inquired if that would increase cost for pt and she states that it would not and that '[employer] would take care of extra cost on the backend.' This RN CM will follow for resolution from [facility]. SStbobbi RN CM
--- NOTE | 2017-04-21 10:00 | CASEMGMT ---
Addendum entered by Annie Don 04/21/17 17:27: Received call from Mandie at [facility] and she states that she cannot guarantee start of care until 04/24/17. Mandie updated on pt need for dressing change on 04/22/17 and she states that she will place call back to [facility] because they had not made her aware that start of care was to be 04/22/17. Munira LAMBERT CM Original Note: Addendum entered by Annie Don 04/21/17 13:13: Received call from Leslye at [facility] and she states that she set up [facility] for pt wound care but they will not start until 04/23/17. Leslye states that she spoke with pt and that pt ok'd this start date with her. Leslye asks this RN CM to fax copy of HHC to Mandie at [facility] at this following # [phone] and that Mandie's contact info is [phone]. Copy of wound care supply order, HHC order and facesheet faxed to Mandie at this time. Munira LAMBERT CM Original Note: Received call from Leslye at [facility] and she states that she is still working on getting HHC set up for wound care for pt at this time. She again clarifies start of care need and this RN CM advised her start of care should be 04/22/17, voices understanding and she states will update this RN CM when HHC obtained. Munira LAMBERT CM
--- NOTE | 2017-04-23 09:20 | CASEMGMT ---
Received message from Leslye at [facility] on Sunday evening stating that [facility] was unable to take pt d/t delayed start of care. Leslye states in message that they will not be working on this any longer that day and that someone would continue to work on this on Sunday. Call placed to [facility] at this time and this RN CM asked to speak with someone regarding the delay in service and concern for the pt. This RN CM was transferred to Emily in customer advocacy at this time and she states that she will be escalating the case to management at this time. This RN CM tried to get clarification as to why wound care and iv therapy have to be separate and why the same [facility] could not see pt for continuity of care, without success. Per Emily, case 'has been escalated to management and they are working on it at this time'. Call to pt to update at this time, voices understanding. This RN CM will continue to follow. Munira RN JOLEEN
--- NOTE | 2017-04-24 13:31 | CASEMGMT ---
Received a call from [facility] and they state that they have finally set pt up for [facility] for wound care through [facility] at this time and start of care will be 04/25/17. Munira LAMBERT CM
== END 2017-04-20 17:50 | disposition home health service (06) | DRG 872 ==
LOC: ED 17:31 → PCU 19:15
PROVIDERS: Physician Assistant; Podiatrist; Admitting Provider Internal Medicine; Emergency Provider Emergency Medicine; Family Provider Internal Medicine; PCP Internal Medicine; Visit Provider Family Medicine
DX: A41.01 Sepsis due to Methicillin susceptible Staphylococcus aureus (principal); K52.1 Toxic gastroenteritis and colitis; E66.01 Morbid (severe) obesity due to excess calories; E83.42 Hypomagnesemia; L03.116 Cellulitis of left lower limb; Z68.43 Body mass index [BMI] 50.0-59.9, adult; E87.1 Hypo-osmolality and hyponatremia; L97.522 Non-pressure chronic ulcer of other part of left foot with fat layer exposed; B95.61 Methicillin susceptible Staphylococcus aureus infection as the cause of diseases classified elsewhere; B95.4 Other streptococcus as the cause of diseases classified elsewhere; I89.0 Lymphedema, not elsewhere classified; R73.9 Hyperglycemia, unspecified; K52.9 Noninfective gastroenteritis and colitis, unspecified; T36.95XA Adverse effect of unspecified systemic antibiotic, initial encounter; E28.2 Polycystic ovarian syndrome; I10 Essential (primary) hypertension; Z86.19 Personal history of other infectious and parasitic diseases; Z87.891 Personal history of nicotine dependence; E87.6 Hypokalemia; F32.9 Major depressive disorder, single episode, unspecified
CPT/HCPCS: 36415; 73620; 73718; 74019; 80048; 80076; 81001; 83036; 83605; 83735; 84484; 84702; 85025; 85027; 85610; 85652; 85730; 86140; 87040; 87070; 87077; 87086; 87186; 87205; 87493; 87640; 93005; 93306; 93971; 97161; 97165; 97802; 99284; J7030; J7040; J7050; Q9957; A4216; C8929; J0295; J2405

== ENCOUNTER 2017-04-23 16:32 | Outpatient (RCR) | payer OTHER, SELFPAY ==
[2017-04-23 17:17] LABS: Hematocrit 33.3 % (37-47); Mean Corpuscular Hgb 27.8 pg (27.0-32.0); Mean Corpuscular Volume 84.1 fL (81-99); Mean Platelet Vol. 9.5 fl (6.2-12.0); Platelet Count 391 K/mm3 (150-450); RBC Distribution Width CV 14.8 % (11.6-14.6); RBC Distribution Width SD 44.1 fl (35.1-43.9); Red Blood Count 3.96 M/mm3 (4.2-5.4); White Blood Count 10.1 K/mm3 (4.4-11.0)
[2017-04-23 17:22] LABS: Scan Indicated on CBC? Y/N NO
[2017-04-23 17:49] LABS: Anion Gap 10 (5-15); BUN 5 mg/dL (7-18); Calcium,Total 8.7 mg/dL (8.5-10.1); Chloride 104 mmol/L (98-107); Creatinine, Serum 0.72 mg/dL (0.55-1.02); EST Glomerular Filtration Rate 98 mL/min (>60); Est Glom Filt Rate - Afr Amer 118 mL/min (>60); Glucose 109 mg/dL (74-106); Potassium 3.5 mmol/L (3.5-5.1); Sodium Level 138 mmol/L (136-145)
== END 2017-04-23 17:00 | disposition home or self-care (01) ==
LOC: LAB 16:32
PROVIDERS: Family Provider Internal Medicine; PCP Internal Medicine; Visit Provider Internal Medicine Infectious Disease
DX: B95.61 Methicillin susceptible Staphylococcus aureus infection as the cause of diseases classified elsewhere (principal)
CPT/HCPCS: 36415; 80048; 85027

== ENCOUNTER 2017-04-24 17:24 | Outpatient (CLI) | payer OTHER, SELFPAY | END 2017-04-24 17:55 | disposition home or self-care (01) | LOC: MS3OUT 17:25 → MS3 17:29 | PROVIDERS: Family Provider Internal Medicine; PCP Internal Medicine; Visit Provider Internal Medicine | DX: Z53.9 Procedure and treatment not carried out, unspecified reason (principal) | CPT/HCPCS: A4216 ==

== ENCOUNTER 2017-04-30 10:56 | Outpatient (CLI) | payer OTHER, SELFPAY ==
[2017-04-30 12:54] LABS: Hematocrit 37.7 % (37-47); Hemoglobin 12.4 g/dl (12.0-15.0); Mean Corp Hgb Conc 32.9 g/gl (32-36); Mean Corpuscular Hgb 27.3 pg (27.0-32.0); Platelet Count 378 K/mm3 (150-450); RBC Distribution Width CV 14.7 % (11.6-14.6); RBC Distribution Width SD 44.1 fl (35.1-43.9); Red Blood Count 4.54 M/mm3 (4.2-5.4); White Blood Count 8.4 K/mm3 (4.4-11.0)
[2017-04-30 12:55] LABS: Scan Indicated on CBC? Y/N NO
[2017-04-30 13:30] LABS: Anion Gap 10 (5-15); BUN 10 mg/dL (7-18); BUN/Creat Ratio 14.9 RATIO (10-20); Calcium,Total 9.3 mg/dL (8.5-10.1); Chloride 104 mmol/L (98-107); Creatinine, Serum 0.67 mg/dL (0.55-1.02); EST Glomerular Filtration Rate 106 mL/min (>60); Est Glom Filt Rate - Afr Amer 128 mL/min (>60); Glucose 94 mg/dL (74-106); Potassium 4.7 mmol/L (3.5-5.1); Sodium Level 136 mmol/L (136-145)
== END 2017-04-30 12:00 | disposition home or self-care (01) ==
LOC: RAD 10:57 → MS2 11:01
PROVIDERS: Family Provider Internal Medicine; PCP Internal Medicine; Visit Provider Internal Medicine
DX: M79.89 Other specified soft tissue disorders (principal); A49.01 Methicillin susceptible Staphylococcus aureus infection, unspecified site; R78.81 Bacteremia
CPT/HCPCS: 36415; 80048; 85027

== ENCOUNTER 2017-05-17 10:00 | Outpatient (RCR) | payer OTHER, SELFPAY ==
[2017-04-24 16:16] VITALS: TEMP 37.3; BMI 48.4
--- NOTE | 2017-04-24 17:15 | PCM.WC.HP ---
(1) Pressure ulcer of other site, stage 3 Status: Acute Current Visit: Yes Code(s): L89.893 - Pressure ulcer of other site, stage 3 (2) Cellulitis of left lower extremity Status: Acute Current Visit: Yes Code(s): L03.116 - Cellulitis of left lower limb History of Present Illness Date of Service: 04/24/17 Chief Complaint: L foot ulcer History of Wound: 36 year old woman presents for hospital follow up for L foot ulceration and LLE cellulitis. Following with Dr. Griffith with ID for cellulitis. Was evaluated by Dr. Lezama in the hospital for this foot ulcer, and will be following up with him from now on. Pt had x-ray and MRI negative for osseous involvement L foot. Pt has neuropathy of L forefoot, but is not diabetic. She believes the numbness in her foot is secondary to cellultiis she had years ago. Currently denies N/V/F/C. Denies pus, malodor, warmth, pain L foot. Has swelling and redness of her L leg that is improved since starting IV atbx. Has a PICC line in place. Has a deep tissue injury of the L calf that is not open. Past Medical History Past Medical History: polycystic ovarian syndrome, history of heart surgery at age 6 - septum repair, depression Surgical History: noncontributory, - - heart surgery age 6 Allergies/Adverse Reactions: Allergies bupropion [From Wellbutrin] Adverse Reaction (Intermediate, Verified 06/09/16 09:41) Other increased suicidal ideations aspirin [ASA] Adverse Reaction (Verified 06/09/16 09:41) Upset Stomach Home Medications: Ambulatory Orders Medication Instructions Recorded Cetirizine HCl [Zyrtec] 10 mg PO DAILY 06/09/16 Furosemide [Lasix] 40 mg PO DAILY PRN 06/09/16 Lisinopril [Zestril] 2.5 mg PO DAILY 06/09/16 Metformin HCl [Glucophage] 500 mg PO DAILY 06/09/16 Spironolactone [Aldactone] 25 mg PO DAILY 06/09/16 Trazodone HCl [Desyrel] 50 - 100 mg PO QHS 06/09/16 Venlafaxine HCl [Effexor] 225 mg PO DAILY 06/09/16 Carvedilol 25 mg PO BID 04/15/17 Cefazolin 2 gm IV Q8 26 Days vial 04/20/17 Diphenoxylate/Atrop [Lomotil] 2 tablet PO 4X/DAY PRN PRN #30 04/20/17 tablet Lactobacillus Acidophilus 1 tab PO TID #90 tab 04/20/17 [Acidophilus] Oxycodone [Oxyir] 5 mg PO Q6H PRN PRN 5 Days #20 04/20/17 tablet ProMETHAzine [Phenergan] 12.5 mg PO Q6H PRN PRN #20 tab 04/20/17 Omeprazole [Prilosec] 20 mg PO DAILY 04/24/17 - Family History Maternal No pertinent history Lives: Spouse/ Significant Other Smoking Status: Former smoker Tobacco Use: Non-smoker Alcohol: Rare Drugs: None Review of Systems Constitutional: Denies: Chills, Fever, Weight Change Eyes: Denies: Pain, Vision Change HEENT: Denies: Difficulty Hearing, Difficulty Swallowing, Sinus Congestion Cardiovascular: Reports: Edema. Denies: Chest Pain, Palpitations Respiratory: Denies: Cough, Shortness of Breath Gastrointestinal: Denies: Diarrhea, Nausea, Vomiting Genitourinary: Denies: Dysuria, Hematuria Skin: Reports: Wounds - L foot Neurological: Reports: Numbness - L forefoot. Denies: Slurred speech Psychiatric: Reports: Depression, Suicidal Ideations - history of Endocrine: Denies: Heat/ Cold Intolerance, Polydipsia, Polyuria Hematologic/ Lymphatic: Denies: Easy Bruising, Easy Bleeding, Hx of blood clot - Physical Exam Vital Signs Temp 99.1 F 04/24/17 16:16 General: Alert, Oriented x3, Cooperative, No apparent distress Abdomen: Obese Extremities: No clubbing, No cyanosis, Capillary Refill Less than 3 Seconds, No Calf Tenderness, Edema, Peripheral Pulses Normal Skin: Ulcer/ Wound - Plantar L forefoot with no erythema, no malodor, no pus, no pain, no calor. No clinical signs of acute bacterial infection noted. See wound/edema assessment below. There is erythema, edema, increased warmth of the L leg d/t cellulitis which is being treated by infectious diseases. Wound Measurements and Assessment WC - Nurse 1 - General Ulcer Measurement Start: 04/24/17 16:15 Freq: Status: Active Protocol: Activity Type Activity Date Activity User E-Sign Co-Sign Detail Recorded Client Recorded Date Recorded By Document 04/24/17 16:16 DV [id number] 04/24/17 16:27 DV 04/24/17 16:16 Wound Center Nurse 1 [Ulcer Assessment] #2 Left 3rd Toe- Plantar -Combined with other wound No -Current Size (cm) - Length 0.7 -Current Size (cm) - Width 0.7 -Current Size (cm) - Depth 0.2 -Total Square Cm 0.49 -Photo Taken Yes -Epithelialization None Present -Tunneling No -Undermining/Tunneling No -Circular Undermining No -Classification - Thickness Full Thickness without Exposed Support Structure -Exudate Amt None Present (0 %) -Wound Margin Indistinct, Non -Visible -Granulation Amt None Present (0 %) -Granulation Quality N/A -Slough/Fibrin Yes -Necrosis Amt Large (67-100%) -Necrotic Tissue Type Adherent Slough -Structure Exposed None/Limited to Skin Breakdown -Texture (Cristina-wound Skin Appearance) Assessed Localized Edema -Moisture (Cristina-wound Skin Appearance Assessed ) Weeping -Color (Cristina-wound Skin Appearance) No Abnormality Assessed -Temperature (Cristina-wound Skin No Abnormality Appearance) (Pt Warm) -Ulcer Cleansing Rinsed/ Irrigated with Saline -Foul Odor after Cleansing No -Anesthetic Used 4% Lidocaine Solution # 1 Left Posterior Calf (deep tissue injury) -Combined with other wound No -Current Size (cm) - Length 4.2 -Current Size (cm) - Width 4.0 -Current Size (cm) - Depth 0.1 -Total Square Cm 16.80 -Photo Taken Yes -Epithelialization None Present -Tunneling No -Undermining/Tunneling No -Circular Undermining No -Classification - Thickness Full Thickness without Exposed Support Structure -Exudate Amt None Present (0 %) -Wound Margin Indistinct, Non -Visible -Granulation Amt None Present (0 %) -Granulation Quality N/A -Necrosis Amt None Present (0 %) -Necrotic Tissue Type Adherent Slough -Structure Exposed N/A -Texture (Cristina-wound Skin Appearance) Assessed Scarring -Moisture (Cristina-wound Skin Appearance Assessed ) Dry/Scaly -Color (Cristina-wound Skin Appearance) No Abnormality Assessed -Temperature (Cristina-wound Skin No Abnormality Appearance) (Pt Warm) -Tenderness on Palpation (Cristina-wound No Skin Appearance) -Ulcer Cleansing Rinsed/ Irrigated with Saline -Foul Odor after Cleansing No -Anesthetic Used 4% Lidocaine Solution [Edema Assessment] -Lower Limb Edema Present Yes -Right Calf (cm) 34.0 -Right Ankle (cm) 26.5 -Left Calf (cm) 61.8 -Left Ankle (cm) 31.0 NAOMI - Nurse 2 - General Ulcer CM Notes Start: 04/24/17 16:15 Freq: Status: Active Protocol: Activity Type Activity Date Activity User E-Sign Co-Sign Detail Recorded Client Recorded Date Recorded By Document 04/24/17 16:55 MW [id number] 04/24/17 17:02 MW 04/24/17 16:55 Wound Center Nurse 2 [Procedure/Treatment] #2 Left 3rd Toe- Plantar -Time 16:55 -Correct Patient Yes -Correct Side, Site, Position Yes -Correct Procedure Yes -Procedure Performed Yes -Type of Procedure Debridement -Clinical Debridement Subcutaneous -Post Debridement Size (cm) - Length 0.4 -Post Debridement Size (cm) - Width 1.0 -Post Debridement Size (cm) - Depth 0.1 -Total Square Cm 0.40 -Wound/Ulcer Outcome Not Healed -Ulcer Cleansing Rinsed/ Irrigated with Saline -Foul Odor after Cleansing No -Bioengineered Tissue No -Bleeding Controlled with Pressure -Treatment Response Procedure Tolerated Well # 1 Left Posterior Calf (deep tissue injury) -Time 16:55 -Correct Patient Yes -Correct Side, Site, Position Yes -Correct Procedure Yes -Procedure Performed No -Post Debridement Size (cm) - Length 4.2 -Post Debridement Size (cm) - Width 4.0 -Post Debridement Size (cm) - Depth 0.1 -Total Square Cm 16.80 -Wound/Ulcer Outcome Not Healed -Ulcer Cleansing Not Cleansed -Foul Odor after Cleansing No -Bioengineered Tissue No -Bleeding Controlled with NA -Treatment Response Procedure Tolerated Well [See Physician Procedure note for Specifics] Pain Scale: 0-10 Numeric [Pain] -Is Patient Pain Free? Yes Debridement Note Post-Debridement Measurements/Treatment WC - Nurse 2 - General Ulcer CM Notes Start: 04/24/17 16:15 Freq: Status: Active Protocol: Activity Type Activity Date Activity User E-Sign Co-Sign Detail Recorded Client Recorded Date Recorded By Document 04/24/17 16:55 MW [id number] 04/24/17 17:02 MW 04/24/17 16:55 Wound Center Nurse 2 #2 Left 3rd Toe- Plantar -Time 16:55 -Correct Patient Yes -Correct Side, Site, Position Yes -Correct Procedure Yes -Procedure Performed Yes -Type of Procedure Debridement -Clinical Debridement Subcutaneous -Post Debridement Size (cm) - Length 0.4 -Post Debridement Size (cm) - Width 1.0 -Post Debridement Size (cm) - Depth 0.1 -Total Square Cm 0.40 -Wound/Ulcer Outcome Not Healed -Ulcer Cleansing Rinsed/ Irrigated with Saline -Foul Odor after Cleansing No -Bioengineered Tissue No -Bleeding Controlled with Pressure -Treatment Response Procedure Tolerated Well # 1 Left Posterior Calf (deep tissue injury) -Time 16:55 -Correct Patient Yes -Correct Side, Site, Position Yes -Correct Procedure Yes -Procedure Performed No -Post Debridement Size (cm) - Length 4.2 -Post Debridement Size (cm) - Width 4.0 -Post Debridement Size (cm) - Depth 0.1 -Total Square Cm 16.80 -Wound/Ulcer Outcome Not Healed -Ulcer Cleansing Not Cleansed -Foul Odor after Cleansing No -Bioengineered Tissue No -Bleeding Controlled with NA -Treatment Response Procedure Tolerated Well Pain Scale: 0-10 Numeric Is Patient Pain Free? Yes Wound debrided: L forefoot Laterality: Left Wound Grade/Stage: Stage 3 pressure injury L forefoot Type of Debridement: Excisional debridement Anesthesia Used: 4% Lidocaine Solution Depth: Down to and including healthy tissue, in the subcutaneous layer Percentage of wound debrided: 100 Instrument Used: 3mm curette Tissue Removed: fibrous slough Severity: Fat Layer Exposed Amount of bleeding with debridement: Mild Bleeding Controlled with: Pressure, Compression and gauze Patient tolerated procedure well Assessment/Plan Active Problems Pressure ulcer of other site, stage 3 (Acute) Cellulitis of left lower extremity (Acute) Assessment: See diagnoses Plan: [employer]PRESENT[employer]IVE exam. SQ/excisional debridement L forefoot ulcer as above. Pt already had imaging, labs. She states ulcer improved since leaving the hospital. She has been applying aquacel ag and dry dressing daily. Continue this dressing, but decrease to every other day. Keep dry in shower, wash separately with dressing changes. Discussed importance of adequate nutrition, especially increased protein intake, to promote healing. Offload as much as possible, but ulceration is distal to the weighbearing surface of her forefoot. Pt is not diabetic but has neuropathy. D/w pt and her that she will need to monitor her foot daily in the future to avoid similar problems. Likely would benefit from accommodative orthotics. F/u with Dr. Lezama in the future. Monitor for redness, pus, malodor, warmth, pain, swelling of the foot as well as for N/V/F/C and go to the ED with these. Call with questions prior to f/u with Dr. Lezama next .
[2017-05-03 10:05] VITALS: BP 117/88; PULSE 93; RESP 18; TEMP 35.8; BMI 48.4
--- NOTE | 2017-05-03 12:49 | PCM.WC.PN ---
(1) Neuropathic ulcer of left foot with fat layer exposed Status: Acute Current Visit: Yes Code(s): L97.522 - Non-pressure chronic ulcer of other part of left foot with fat layer exposed (2) Delayed wound healing Status: Acute Current Visit: Yes Code(s): T14.8XXD - Other injury of unspecified body region, subsequent encounter (3) Lower extremity edema Status: Acute Current Visit: Yes Code(s): R60.0 - Localized edema (4) Malnutrition Status: Acute Current Visit: Yes Code(s): E46 - Unspecified protein-calorie malnutrition (5) Cellulitis of left lower extremity Status: Resolved Current Visit: Yes Code(s): L03.116 - Cellulitis of left lower limb Type of Wound Date of Service: 05/03/17 Chief Complaint: L foot ulcer History of Wound: 36 year old woman presents for hospital follow up for L foot ulceration and LLE cellulitis. Following with Dr. Griffith with ID for cellulitis. Was evaluated by Dr. Lezama in the hospital for this foot ulcer, and will be following up with him from now on. Pt had x-ray and MRI negative for osseous involvement L foot. Pt has neuropathy of L forefoot, but is not diabetic. She believes the numbness in her foot is secondary to cellultiis she had years ago. Currently denies N/V/F/C. Denies pus, malodor, warmth, pain L foot. Has swelling and redness of her L leg that is improved since starting IV atbx. Has a PICC line in place. Has a deep tissue injury of the L calf that is not open. Progress of Wound: Patient was seen again this week. Ulcer site is slightly improved with slightly less hyperkeratotic tissue surrounding area. Cellulitis is resolved. Patient says infectious disease discontinued her IV antibiotics. She feels she is improving. Denies any feelings of nausea, vomiting, fever, or chills today. - Physical Exam Vital Signs Temp Pulse Resp BP 96.4 F L 93 18 117/88 H 05/03/17 10:05 05/03/17 10:05 05/03/17 10:05 05/03/17 10:05 General: Alert, Oriented x3, Cooperative, No apparent distress Extremities: Capillary Refill Less than 3 Seconds, No Calf Tenderness - negative james and mccann sign, Diminished Peripheral Pulses - non palpable PT pulses bilataeral due to edema, Edema - bilateral lower extremity edema Skin: Ulcer/ Wound - Plantar L forefoot with no erythema, no malodor, no pus, no pain, no calor. No clinical signs of acute bacterial infection noted. See wound/edema assessment below. There is no longer erythema or increased warmth of the L leg. There is very slight amount of undermining as well as hyperkeratic tissue surrounding the ulcer site. No probing to bone or tracking. Wound Measurements and Assessment WC - Nurse 1 - General Ulcer Measurement Start: 04/24/17 16:15 Freq: Status: Active Protocol: Activity Type Activity Date Activity User E-Sign Co-Sign Detail Recorded Client Recorded Date Recorded By Document 05/03/17 10:12 BANDAR [id number] 05/03/17 11:07 BANDAR 05/03/17 10:12 Wound Center Nurse 1 [Ulcer Assessment] #2 Left 3rd Toe- Plantar -Combined with other wound No -Current Size (cm) - Length 0.2 -Current Size (cm) - Width 1.5 -Current Size (cm) - Depth 0.1 -Total Square Cm 0.30 -Date of Last Picture (Recall this 04/26/17 field) -Photo Taken No -Epithelialization Small 1-33% -Tunneling No -Undermining/Tunneling No -Circular Undermining No -Classification - Thickness Full Thickness without Exposed Support Structure -Exudate Amt Small (1-33%) -Exudate Type Serosanguineous -Wound Margin Distinct, Outline Attached -Granulation Amt None Present (0 %) -Granulation Quality N/A -Necrosis Amt None Present (0 %) -Necrotic Tissue Type Adherent Slough -Structure Exposed N/A -Texture (Cristina-wound Skin Appearance) Callus -Moisture (Cristina-wound Skin Appearance No Abnormality ) -Color (Cristina-wound Skin Appearance) No Abnormality -Temperature (Cristina-wound Skin No Abnormality Appearance) (Pt Warm) -Tenderness on Palpation (Cristina-wound No Skin Appearance) -Ulcer Cleansing Rinsed/ Irrigated with Saline -Foul Odor after Cleansing No -Anesthetic Used 4% Lidocaine Solution # 1 Left Posterior Calf (deep tissue injury) -Combined with other wound No -Current Size (cm) - Length 0 -Current Size (cm) - Width 0 -Current Size (cm) - Depth 0 -Total Square Cm 0 -Date of Last Picture (Recall this 05/03/17 field) -Photo Taken Yes -Epithelialization Large 67-100% -Tunneling No -Undermining/Tunneling No -Circular Undermining No -Classification - Thickness Full Thickness without Exposed Support Structure -Exudate Amt None Present (0 %) -Wound Margin Distinct, Outline Attached -Granulation Amt None Present (0 %) -Slough/Fibrin Yes -Necrosis Amt None Present (0 %) -Necrotic Tissue Type Eschar -Structure Exposed N/A -Texture (Cristina-wound Skin Appearance) No Abnormality -Moisture (Cristina-wound Skin Appearance No Abnormality ) -Color (Cristina-wound Skin Appearance) No Abnormality -Temperature (Cristina-wound Skin No Abnormality Appearance) (Pt Warm) -Tenderness on Palpation (Cristina-wound No Skin Appearance) -Ulcer Cleansing Rinsed/ Irrigated with Saline -Foul Odor after Cleansing No [Edema Assessment] -Left Calf (cm) 60 -Left Ankle (cm) 31.5 WC - Nurse 2 - General Ulcer CM Notes Start: 04/24/17 16:15 Freq: Status: Active Protocol: Activity Type Activity Date Activity User E-Sign Co-Sign Detail Recorded Client Recorded Date Recorded By Document 05/03/17 11:06 MW [id number] 05/03/17 11:17 MW 05/03/17 11:06 Wound Center Nurse 2 [Procedure/Treatment] #2 Left 3rd Toe- Plantar -Time 11:07 -Correct Patient Yes -Correct Side, Site, Position Yes -Correct Procedure Yes -Procedure Performed Yes -Type of Procedure Debridement -Clinical Debridement Subcutaneous -Post Debridement Size (cm) - Length 0.6 -Post Debridement Size (cm) - Width 1.8 -Post Debridement Size (cm) - Depth 0.2 -Total Square Cm 1.08 -Wound/Ulcer Outcome Not Healed -Ulcer Cleansing Rinsed/ Irrigated with Saline -Foul Odor after Cleansing No -Bioengineered Tissue No -Bleeding Controlled with Pressure -Treatment Response Procedure Tolerated Well # 1 Left Posterior Calf (deep tissue injury) -Time 11:07 -Correct Patient Yes -Correct Side, Site, Position Yes -Correct Procedure Yes -Procedure Performed No -Post Debridement Size (cm) - Length 0 -Post Debridement Size (cm) - Width 0 -Post Debridement Size (cm) - Depth 0 -Total Square Cm 0 -Wound/Ulcer Outcome Healed- Epithelialized -Ulcer Cleansing Not Cleansed -Bleeding Controlled with NA -Treatment Response Procedure Tolerated Well [See Physician Procedure note for Specifics] Pain Scale: 0-10 Numeric [Pain] -Is Patient Pain Free? Yes Musculoskeletal: - - muscle strenght within normal limits for bilateral lower extremities Neurological: - - some numbness and decreased sensation to left forefoot Psych/Mental Status: Normal Affect, Appropriate Debridement Note Post-Debridement Measurements/Treatment WC - Nurse 2 - General Ulcer CM Notes Start: 04/24/17 16:15 Freq: Status: Active Protocol: Activity Type Activity Date Activity User E-Sign Co-Sign Detail Recorded Client Recorded Date Recorded By Document 04/24/17 16:55 MW [id number] 04/24/17 17:02 MW Document 05/03/17 11:06 MW [id number] 05/03/17 11:17 MW 04/24/17 05/03/17 16:55 11:06 Wound Center Nurse 2 #2 Left 3rd Toe- Plantar -Time 16:55 11:07 -Correct Patient Yes Yes -Correct Side, Site, Position Yes Yes -Correct Procedure Yes Yes -Procedure Performed Yes Yes -Type of Procedure Debridement Debridement -Clinical Debridement Subcutaneous Subcutaneous -Post Debridement Size (cm) - Length 0.4 0.6 -Post Debridement Size (cm) - Width 1.0 1.8 -Post Debridement Size (cm) - Depth 0.1 0.2 -Total Square Cm 0.40 1.08 -Wound/Ulcer Outcome Not Healed Not Healed -Ulcer Cleansing Rinsed/ Rinsed/ Irrigated with Irrigated with Saline Saline -Foul Odor after Cleansing No No -Bioengineered Tissue No No -Bleeding Controlled with Pressure Pressure -Treatment Response Procedure Procedure Tolerated Well Tolerated Well # 1 Left Posterior Calf (deep tissue injury) -Time 16:55 11:07 -Correct Patient Yes Yes -Correct Side, Site, Position Yes Yes -Correct Procedure Yes Yes -Procedure Performed No No -Post Debridement Size (cm) - Length 4.2 0 -Post Debridement Size (cm) - Width 4.0 0 -Post Debridement Size (cm) - Depth 0.1 0 -Total Square Cm 16.80 0 -Wound/Ulcer Outcome Not Healed Healed- Epithelialized -Ulcer Cleansing Not Cleansed Not Cleansed -Foul Odor after Cleansing No -Bioengineered Tissue No -Bleeding Controlled with NA NA -Treatment Response Procedure Procedure Tolerated Well Tolerated Well Pain Scale: 0-10 Numeric Is Patient Pain Free? Yes Yes Wound debrided: left plantar forefoot Laterality: Left Type of Debridement: Excisional debridement Anesthesia Used: 4% Lidocaine Solution Depth: in the subcutaneous layer Percentage of wound debrided: 100 Instrument Used: #15 blade, - - tissue nippers Tissue Removed: adherent slough, fibrin, hyperkeratotic tissue Severity: Fat Layer Exposed Amount of bleeding with debridement: Mild Bleeding Controlled with: Pressure Patient tolerated procedure well Assessment/Plan Active Problems Pressure ulcer of other site, stage 3 (Acute) Neuropathic ulcer of left foot with fat layer exposed (Acute) Delayed wound healing (Acute) Lower extremity edema (Acute) Malnutrition (Acute) Assessment: See diagnoses Plan: Patient was examined and evaluated again today. Debridement was completed as noted in the clinical panel. There is slight improvement in appearance of ulcer since seen in office last week. She has been applying aquacel ag and dry dressing daily as well as trying to keep compression abhi wraps on her legs. She says she has been having trouble with the abhi wraps staying up. She will be transitioned into a new form of compression today that she is to keep on at all times during the day. Continue this dressing daily. Keep dry in shower, wash separately with dressing changes. Discussed importance of adequate nutrition, especially increased protein intake, to promote healing. She is to offload as much as possible. Discussed certain offloading padding options if needed in the future as well as different shoe stores to make sure she is fitted with appropriate shoe size. Pt is not diabetic but has neuropathy. Patient is to monitor her feet daily to avoid any further injuries due to the patient not having the best sensation in her feet. Likely would benefit from accommodative orthotics. Venous duplex study ordered and results will be reviewed following her testing. She is to monitor for redness, pus, malodor, warmth, pain, swelling of the foot as well as for N/V/F/C and go to the ED with these. Call with questions prior to f/u next .
--- NOTE | 2017-05-10 08:10 | VDLE_ITS ---
Reason For Study: Non-healing wound RIGHT LEFT CFV is compressible, spontaneous, phasic, CFV is compressible, spontaneous, phasic, competent and demonstrates normal competent, and demonstrates normal augmentation. augmentation. FV is compressible, spontaneous, phasic, FV is compressible, spontaneous, phasic, competent and demonstrates normal competent and demonstrates normal augmentation. augmentation. POP V is compressible, spontaneous, phasic, POP V is compressible, spontaneous, phasic, competent and demonstrates normal competent and demonstrates normal augmentation. augmentation. T/P Trunk is compressible. T/P Trunk is compressible. PTV is compressible. PTV is compressible. RT PerV is compressible. LT PerV is compressible. SFJ is INCOMPETENT for greater than .5 sec SFJ is INCOMPETENT for greater than .5 sec GSV is competent GSV is competent above knee SSV is competent. GSV is INCOMPETENT below knee with reflux Procedure greater than .5 sec and diameter of .39 Exam performed in department. x .41 cm A preliminary report was called and/or faxed SSV is competent. to [facility]. Interpretation Summary Deep veins of the lower extremities are bilaterally patent and compressible segmentally. There is no evidence of deep vein thrombosis on either side. Valvular competence appears intact within the proximal deep venous systems bilaterally. The greater saphenous veins appear bilaterally patent and compressible segmentally. Sapheno-femoral junctions are bilaterally incompetent . The right greater saphenous vein appears segmentally competent. The left greater saphenous vein appears competent above the knee. The left greater saphenous vein appears incompetent below the knee. Small saphenous veins are patent and competent bilaterally. Ordering Physician: Ángel Lezama Referring Physician: Dipak Griffith Performed By: Lucy Philip RVT
[2017-05-10 09:06] VITALS: BP 120/74; PULSE 88; RESP 20; TEMP 36.6; BMI 48.4
--- NOTE | 2017-05-10 14:18 | PN.PCM_ITS ---
(1) Neuropathic ulcer of left foot with fat layer exposed Status: Acute Current Visit: Yes Code(s): L97.522 - Non-pressure chronic ulcer of other part of left foot with fat layer exposed (2) Delayed wound healing Status: Acute Current Visit: Yes Code(s): T14.8XXD - Other injury of unspecified body region, subsequent encounter (3) Lower extremity edema Status: Acute Current Visit: Yes Code(s): R60.0 - Localized edema (4) Malnutrition Status: Acute Current Visit: Yes Code(s): E46 - Unspecified protein-calorie malnutrition (5) Cellulitis of left lower extremity Status: Resolved Current Visit: Yes Code(s): L03.116 - Cellulitis of left lower limb Type of Wound Date of Service: 05/10/17 Chief Complaint: L foot ulcer History of Wound: 36 year old woman presents for hospital follow up for L foot ulceration and LLE cellulitis. Following with Dr. Griffith with ID for cellulitis. Was evaluated by Dr. Lezama in the hospital for this foot ulcer, and will be following up with him from now on. Pt had x-ray and MRI negative for osseous involvement L foot. Pt has neuropathy of L forefoot, but is not diabetic. She believes the numbness in her foot is secondary to cellultiis she had years ago. Currently denies N/V/F/C. Denies pus, malodor, warmth, pain L foot. Has swelling and redness of her L leg that is improved since starting IV atbx. Has a PICC line in place. Has a deep tissue injury of the L calf that is not open. Progress of Wound: Patient was seen again this week. Ulcer site is slightly improved with slightly less hyperkeratotic tissue surrounding area again. Cellulitis continues to stay resolved. She feels she is improving. Denies any feelings of nausea, vomiting, fever, or chills today. - Physical Exam Vital Signs Temp Pulse Resp BP 98 F 88 20 H 120/74 05/10/17 09:06 05/10/17 09:06 05/10/17 09:06 05/10/17 09:06 General: Alert, Oriented x3, Cooperative, No apparent distress Extremities: Capillary Refill Less than 3 Seconds, No Calf Tenderness - negative james and mccann sign, Diminished Peripheral Pulses - DP and PT pulses non palpable due to lower extremity edema, Edema - lower extremity edema Skin: Ulcer/ Wound - Plantar L forefoot ulcer with no erythema, no malodor, no pus, no pain, no calor. No clinical signs of acute bacterial infection noted. See wound/edema assessment below. There is very slight amount of undermining as well as hyperkeratic tissue surrounding the ulcer site again today. No probing to bone or tracking. Wound Measurements and Assessment WC - Nurse 1 - General Ulcer Measurement Start: 04/24/17 16:15 Freq: Status: Active Protocol: Activity Type Activity Date Activity User E-Sign Co-Sign Detail Recorded Client Recorded Date Recorded By Document 05/10/17 09:06 DL [id number] 05/10/17 09:13 DL 05/10/17 09:06 Wound Center Nurse 1 [Ulcer Assessment] #2 Left 3rd Toe- Plantar -Current Size (cm) - Length 0.1 -Current Size (cm) - Width 0.1 -Current Size (cm) - Depth 0.1 -Total Square Cm 0.01 -Photo Taken No -Exudate Amt None Present (0 %) -Wound Margin Thickened -Granulation Amt Large (67-100%) -Granulation Quality Pale -Necrosis Amt None Present (0 %) -Structure Exposed N/A -Texture (Cristina-wound Skin Appearance) Callus -Moisture (Cristina-wound Skin Appearance Dry/Scaly ) -Color (Cristina-wound Skin Appearance) No Abnormality -Temperature (Cristina-wound Skin No Abnormality Appearance) (Pt Warm) -Ulcer Cleansing Rinsed/ Irrigated with Saline -Foul Odor after Cleansing No -Anesthetic Used 4% Lidocaine Solution [Edema Assessment] -Left Calf (cm) 55.5 -Left Ankle (cm) 30 WC - Nurse 2 - General Ulcer CM Notes Start: 04/24/17 16:15 Freq: Status: Active Protocol: Activity Type Activity Date Activity User E-Sign Co-Sign Detail Recorded Client Recorded Date Recorded By Document 05/10/17 09:35 MW [id number] 05/10/17 09:49 MW 05/10/17 09:35 Wound Center Nurse 2 [Procedure/Treatment] #2 Left 3rd Toe- Plantar -Time 09:36 -Correct Patient Yes -Correct Side, Site, Position Yes -Correct Procedure Yes -Procedure Performed Yes -Type of Procedure Debridement -Clinical Debridement Subcutaneous -Post Debridement Size (cm) - Length 0.5 -Post Debridement Size (cm) - Width 1.5 -Post Debridement Size (cm) - Depth 0.2 -Total Square Cm 0.75 -Wound/Ulcer Outcome Not Healed -Ulcer Cleansing Rinsed/ Irrigated with Saline -Foul Odor after Cleansing No -Bioengineered Tissue No -Bleeding Controlled with Pressure -Treatment Response Procedure Tolerated Well [See Physician Procedure note for Specifics] Pain Scale: 0-10 Numeric [Pain] -Is Patient Pain Free? Yes Musculoskeletal: - - Muscle strength within normal limits for bilateral lower extremities Neurological: - - some numbness and decreased sensation to left forefoot Psych/Mental Status: Normal Affect, Appropriate Debridement Note Post-Debridement Measurements/Treatment WC - Nurse 2 - General Ulcer CM Notes Start: 04/24/17 16:15 Freq: Status: Active Protocol: Activity Type Activity Date Activity User E-Sign Co-Sign Detail Recorded Client Recorded Date Recorded By Document 04/24/17 16:55 MW [id number] 04/24/17 17:02 MW Document 05/03/17 11:06 MW [id number] 05/03/17 11:17 MW Document 05/10/17 09:35 MW [id number] 05/10/17 09:49 MW 04/24/17 05/03/17 05/10/17 16:55 11:06 09:35 Wound Center Nurse 2 #2 Left 3rd Toe- Plantar -Time 16:55 11:07 09:36 -Correct Patient Yes Yes Yes -Correct Side, Site, Position Yes Yes Yes -Correct Procedure Yes Yes Yes -Procedure Performed Yes Yes Yes -Type of Procedure Debridement Debridement Debridement -Clinical Debridement Subcutaneous Subcutaneous Subcutaneous -Post Debridement Size (cm) - Length 0.4 0.6 0.5 -Post Debridement Size (cm) - Width 1.0 1.8 1.5 -Post Debridement Size (cm) - Depth 0.1 0.2 0.2 -Total Square Cm 0.40 1.08 0.75 -Wound/Ulcer Outcome Not Healed Not Healed Not Healed -Ulcer Cleansing Rinsed/ Rinsed/ Rinsed/ Irrigated with Irrigated with Irrigated with Saline Saline Saline -Foul Odor after Cleansing No No No -Bioengineered Tissue No No No -Bleeding Controlled with Pressure Pressure Pressure -Treatment Response Procedure Procedure Procedure Tolerated Well Tolerated Well Tolerated Well # 1 Left Posterior Calf (deep tissue injury) -Time 16:55 11:07 -Correct Patient Yes Yes -Correct Side, Site, Position Yes Yes -Correct Procedure Yes Yes -Procedure Performed No No -Post Debridement Size (cm) - Length 4.2 0 -Post Debridement Size (cm) - Width 4.0 0 -Post Debridement Size (cm) - Depth 0.1 0 -Total Square Cm 16.80 0 -Wound/Ulcer Outcome Not Healed Healed- Epithelialized -Ulcer Cleansing Not Cleansed Not Cleansed -Foul Odor after Cleansing No -Bioengineered Tissue No -Bleeding Controlled with NA NA -Treatment Response Procedure Procedure Tolerated Well Tolerated Well Pain Scale: 0-10 Numeric Is Patient Pain Free? Yes Yes Yes Wound debrided: left plantar forefoot Laterality: Left Type of Debridement: Excisional debridement Anesthesia Used: 4% Lidocaine Solution Depth: in the subcutaneous layer Percentage of wound debrided: 100 Instrument Used: #15 blade, - - tissue nippers Tissue Removed: adherent slough, fibrin, hyperkeratotic tissue Severity: Fat Layer Exposed Amount of bleeding with debridement: Mild Bleeding Controlled with: Pressure Patient tolerated procedure well Assessment/Plan Active Problems Pressure ulcer of other site, stage 3 (Acute) Neuropathic ulcer of left foot with fat layer exposed (Acute) Delayed wound healing (Acute) Lower extremity edema (Acute) Malnutrition (Acute) Assessment: See diagnoses Plan: Patient was examined and evaluated again today. Debridement was completed as noted in the clinical panel. There is slight improvement in appearance of ulcer since last week. She has been applying aquacel ag and dry dressing daily as well as trying to keep compression abhi wraps on her legs. Patient has been using surepress bilateral for compression. Continue this dressing daily. Keep dry in shower, wash separately with dressing changes. Discussed importance of adequate nutrition, especially increased protein intake, to promote healing. She is to offload as much as possible. Discussed certain offloading padding options if needed in the future as well as different shoe stores to make sure she is fitted with appropriate shoe size. Pt is not diabetic but has neuropathy. Patient is to monitor her feet daily to avoid any further injuries due to the patient not having the best sensation in her feet. Likely would benefit from accommodative orthotics. Venous duplex study was reviewed. She is to monitor for redness, pus, malodor, warmth, pain, swelling of the foot as well as for N/V/F/C and go to the ED with these. Call with questions prior to f /u next .
[2017-05-17 10:18] VITALS: BP 137/77; PULSE 86; RESP 18; TEMP 36.1; BMI 48.4
--- NOTE | 2017-05-17 15:56 | PCM.WC.PN ---
(1) Neuropathic ulcer of left foot with fat layer exposed Status: Acute Current Visit: Yes Code(s): L97.522 - Non-pressure chronic ulcer of other part of left foot with fat layer exposed (2) Delayed wound healing Status: Acute Current Visit: Yes Code(s): T14.8XXD - Other injury of unspecified body region, subsequent encounter (3) Lower extremity edema Status: Acute Current Visit: Yes Code(s): R60.0 - Localized edema (4) Malnutrition Status: Acute Current Visit: Yes Code(s): E46 - Unspecified protein-calorie malnutrition (5) Cellulitis of left lower extremity Status: Resolved Current Visit: Yes Code(s): L03.116 - Cellulitis of left lower limb Type of Wound Date of Service: 05/17/17 Chief Complaint: L foot ulcer History of Wound: 36 year old woman presents for hospital follow up for L foot ulceration and LLE cellulitis. Following with Dr. Griffith with ID for cellulitis. Was evaluated by Dr. Lezama in the hospital for this foot ulcer, and will be following up with him from now on. Pt had x-ray and MRI negative for osseous involvement L foot. Pt has neuropathy of L forefoot, but is not diabetic. She believes the numbness in her foot is secondary to cellultiis she had years ago. Currently denies N/V/F/C. Denies pus, malodor, warmth, pain L foot. Has swelling and redness of her L leg that is improved since starting IV atbx. Has a PICC line in place. Has a deep tissue injury of the L calf that is not open. Progress of Wound: Patient was seen again this week. Ulcer is healed today. Denies any feelings of nausea, vomiting, fever, or chills today. - Physical Exam Vital Signs Temp Pulse Resp BP 96.9 F L 86 18 137/77 H 05/17/17 10:18 05/17/17 10:18 05/17/17 10:18 05/17/17 10:18 General: Alert, Oriented x3, Cooperative, No apparent distress Extremities: Capillary Refill Less than 3 Seconds, No Calf Tenderness - negative james and mccann sign bilateral, Diminished Peripheral Pulses - DP and PT pulses non palpable due to lower extremity edema, Edema - bilateral lower extremity edema Skin: Ulcer/ Wound - Ulcer to forefoot is healed today following debridement of overlying hyperkeratotic skin Wound Measurements and Assessment WC - Nurse 1 - General Ulcer Measurement Start: 04/24/17 16:15 Freq: Status: Active Protocol: Activity Type Activity Date Activity User E-Sign Co-Sign Detail Recorded Client Recorded Date Recorded By Document 05/17/17 10:18 TN [id number] 05/17/17 10:29 TN 05/17/17 10:18 Wound Center Nurse 1 [Ulcer Assessment] #2 Left 3rd Toe- Plantar -Combined with other wound No -Current Size (cm) - Length 0.1 -Current Size (cm) - Width 0.1 -Current Size (cm) - Depth 0.1 -Total Square Cm 0.01 -Photo Taken No -Epithelialization None Present -Tunneling No -Undermining/Tunneling No -Circular Undermining No -Classification - Thickness Full Thickness without Exposed Support Structure -Exudate Amt None Present (0 %) -Wound Margin Flat & Intact -Granulation Amt None Present (0 %) -Slough/Fibrin Yes -Necrosis Amt None Present (0 %) -Necrotic Tissue Type Adherent Slough -Structure Exposed None/Limited to Skin Breakdown -Texture (Cristina-wound Skin Appearance) Assessed Callus -Moisture (Cristina-wound Skin Appearance Assessed ) Dry/Scaly -Color (Cristina-wound Skin Appearance) No Abnormality Assessed -Temperature (Cristina-wound Skin No Abnormality Appearance) (Pt Warm) -Tenderness on Palpation (Cristina-wound No Skin Appearance) -Ulcer Cleansing Wound Cleanser -Foul Odor after Cleansing No [Edema Assessment] -Lower Limb Edema Present No -Left Calf (cm) 57.8 -Left Ankle (cm) 36 - Nurse 2 - General Ulcer CM Notes Start: 04/24/17 16:15 Freq: Status: Active Protocol: Activity Type Activity Date Activity User E-Sign Co-Sign Detail Recorded Client Recorded Date Recorded By Document 05/17/17 11:34 MW [id number] 05/17/17 11:40 MW 05/17/17 11:34 Wound Center Nurse 2 [Procedure/Treatment] #2 Left 3rd Toe- Plantar -Time 11:34 -Correct Patient Yes -Correct Side, Site, Position Yes -Correct Procedure Yes -Procedure Performed No -Post Debridement Size (cm) - Length 0 -Post Debridement Size (cm) - Width 0 -Post Debridement Size (cm) - Depth 0 -Total Square Cm 0 -Wound/Ulcer Outcome Healed- Epithelialized -Ulcer Cleansing Rinsed/ Irrigated with Saline -Foul Odor after Cleansing No -Bleeding Controlled with NA -Treatment Response Procedure Tolerated Well [See Physician Procedure note for Specifics] Pain Scale: 0-10 Numeric [Pain] -Is Patient Pain Free? Yes Musculoskeletal: - - Patient denies tenderness or pain to area Neurological: Motor Exam 5/5 strength throughout - lower extremity Psych/Mental Status: Normal Affect, Appropriate Debridement Note Post-Debridement Measurements/Treatment WC - Nurse 2 - General Ulcer CM Notes Start: 04/24/17 16:15 Freq: Status: Active Protocol: Activity Type Activity Date Activity User E-Sign Co-Sign Detail Recorded Client Recorded Date Recorded By Document 04/24/17 16:55 MW [id number] 04/24/17 17:02 MW Document 05/03/17 11:06 MW [id number] 05/03/17 11:17 MW Document 05/10/17 09:35 MW [id number] 05/10/17 09:49 MW Document 05/17/17 11:34 MW [id number] 05/17/17 11:40 MW 04/24/17 05/03/17 05/10/17 16:55 11:06 09:35 Wound Center Nurse 2 #2 Left 3rd Toe- Plantar -Time 16:55 11:07 09:36 -Correct Patient Yes Yes Yes -Correct Side, Site, Position Yes Yes Yes -Correct Procedure Yes Yes Yes -Procedure Performed Yes Yes Yes -Type of Procedure Debridement Debridement Debridement -Clinical Debridement Subcutaneous Subcutaneous Subcutaneous -Post Debridement Size (cm) - Length 0.4 0.6 0.5 -Post Debridement Size (cm) - Width 1.0 1.8 1.5 -Post Debridement Size (cm) - Depth 0.1 0.2 0.2 -Total Square Cm 0.40 1.08 0.75 -Wound/Ulcer Outcome Not Healed Not Healed Not Healed -Ulcer Cleansing Rinsed/ Rinsed/ Rinsed/ Irrigated with Irrigated with Irrigated with Saline Saline Saline -Foul Odor after Cleansing No No No -Bioengineered Tissue No No No -Bleeding Controlled with Pressure Pressure Pressure -Treatment Response Procedure Procedure Procedure Tolerated Well Tolerated Well Tolerated Well # 1 Left Posterior Calf (deep tissue injury) -Time 16:55 11:07 -Correct Patient Yes Yes -Correct Side, Site, Position Yes Yes -Correct Procedure Yes Yes -Procedure Performed No No -Post Debridement Size (cm) - Length 4.2 0 -Post Debridement Size (cm) - Width 4.0 0 -Post Debridement Size (cm) - Depth 0.1 0 -Total Square Cm 16.80 0 -Wound/Ulcer Outcome Not Healed Healed- Epithelialized -Ulcer Cleansing Not Cleansed Not Cleansed -Foul Odor after Cleansing No -Bioengineered Tissue No -Bleeding Controlled with NA NA -Treatment Response Procedure Procedure Tolerated Well Tolerated Well Pain Scale: 0-10 Numeric Is Patient Pain Free? Yes Yes Yes 05/17/17 11:34 Wound Center Nurse 2 #2 Left 3rd Toe- Plantar -Time 11:34 -Correct Patient Yes -Correct Side, Site, Position Yes -Correct Procedure Yes -Procedure Performed No -Type of Procedure -Clinical Debridement -Post Debridement Size (cm) - Length 0 -Post Debridement Size (cm) - Width 0 -Post Debridement Size (cm) - Depth 0 -Total Square Cm 0 -Wound/Ulcer Outcome Healed- Epithelialized -Ulcer Cleansing Rinsed/ Irrigated with Saline -Foul Odor after Cleansing No -Bioengineered Tissue -Bleeding Controlled with NA -Treatment Response Procedure Tolerated Well # 1 Left Posterior Calf (deep tissue injury) -Time -Correct Patient -Correct Side, Site, Position -Correct Procedure -Procedure Performed -Post Debridement Size (cm) - Length -Post Debridement Size (cm) - Width -Post Debridement Size (cm) - Depth -Total Square Cm -Wound/Ulcer Outcome -Ulcer Cleansing -Foul Odor after Cleansing -Bioengineered Tissue -Bleeding Controlled with -Treatment Response Pain Scale: 0-10 Numeric Is Patient Pain Free? Yes Assessment/Plan Active Problems Pressure ulcer of other site, stage 3 (Acute) Neuropathic ulcer of left foot with fat layer exposed (Acute) Delayed wound healing (Acute) Lower extremity edema (Acute) Malnutrition (Acute) Assessment: See diagnoses Plan: Patient was examined and evaluated again today. Debridement was completed of hyperkeratotic overlying tissue. The previous ulcer was noted to be healed at this time. She is to continue to keep compression on lower legs even though she is healed. Patient has been using surepress bilateral for compression. Discussed importance of adequate nutrition, especially increased protein intake. She is to offload as much as possible even after being healed. Discussed certain offloading padding options if needed in the future as well as different shoe stores to make sure she is fitted with appropriate shoe size. She is not diabetic but has neuropathy. Patient is to monitor her feet daily to avoid any further injuries due to the patient not having the best sensation in her feet. Likely would benefit from accommodative orthotics. She will be discharged at this time from the wound healing center, but orders were placed to transfer care over to [facility] to be evaluated and worked up for her lymphedema. She is to monitor for redness, pus, malodor, warmth, pain, swelling of the foot as well as for N/V/F/C and go to the ED with these. Call with questions.
--- NOTE | 2017-05-17 16:02 | PN.PCM_ITS ---
(1) Neuropathic ulcer of left foot with fat layer exposed Status: Acute Current Visit: Yes Code(s): L97.522 - Non-pressure chronic ulcer of other part of left foot with fat layer exposed (2) Delayed wound healing Status: Acute Current Visit: Yes Code(s): T14.8XXD - Other injury of unspecified body region, subsequent encounter (3) Lower extremity edema Status: Acute Current Visit: Yes Code(s): R60.0 - Localized edema (4) Malnutrition Status: Acute Current Visit: Yes Code(s): E46 - Unspecified protein-calorie malnutrition (5) Cellulitis of left lower extremity Status: Resolved Current Visit: Yes Code(s): L03.116 - Cellulitis of left lower limb Type of Wound Date of Service: 05/17/17 Chief Complaint: L foot ulcer History of Wound: 36 year old woman presents for hospital follow up for L foot ulceration and LLE cellulitis. Following with Dr. Griffith with ID for cellulitis. Was evaluated by Dr. Lezama in the hospital for this foot ulcer, and will be following up with him from now on. Pt had x-ray and MRI negative for osseous involvement L foot. Pt has neuropathy of L forefoot, but is not diabetic. She believes the numbness in her foot is secondary to cellultiis she had years ago. Currently denies N/V/F/C. Denies pus, malodor, warmth, pain L foot. Has swelling and redness of her L leg that is improved since starting IV atbx. Has a PICC line in place. Has a deep tissue injury of the L calf that is not open. Progress of Wound: Patient was seen again this week. Ulcer is healed today. Denies any feelings of nausea, vomiting, fever, or chills today. - Physical Exam Vital Signs Temp Pulse Resp BP 96.9 F L 86 18 137/77 H 05/17/17 10:18 05/17/17 10:18 05/17/17 10:18 05/17/17 10:18 General: Alert, Oriented x3, Cooperative, No apparent distress Extremities: Capillary Refill Less than 3 Seconds, No Calf Tenderness - negative james and mccann sign bilateral, Diminished Peripheral Pulses - DP and PT pulses non palpable due to lower extremity edema, Edema - bilateral lower extremity edema Skin: Ulcer/ Wound - Ulcer to forefoot is healed today following debridement of overlying hyperkeratotic skin Wound Measurements and Assessment WC - Nurse 1 - General Ulcer Measurement Start: 04/24/17 16:15 Freq: Status: Active Protocol: Activity Type Activity Date Activity User E-Sign Co-Sign Detail Recorded Client Recorded Date Recorded By Document 05/17/17 10:18 TN [id number] 05/17/17 10:29 TN 05/17/17 10:18 Wound Center Nurse 1 [Ulcer Assessment] #2 Left 3rd Toe- Plantar -Combined with other wound No -Current Size (cm) - Length 0.1 -Current Size (cm) - Width 0.1 -Current Size (cm) - Depth 0.1 -Total Square Cm 0.01 -Photo Taken No -Epithelialization None Present -Tunneling No -Undermining/Tunneling No -Circular Undermining No -Classification - Thickness Full Thickness without Exposed Support Structure -Exudate Amt None Present (0 %) -Wound Margin Flat & Intact -Granulation Amt None Present (0 %) -Slough/Fibrin Yes -Necrosis Amt None Present (0 %) -Necrotic Tissue Type Adherent Slough -Structure Exposed None/Limited to Skin Breakdown -Texture (Cristina-wound Skin Appearance) Assessed Callus -Moisture (Cristina-wound Skin Appearance Assessed ) Dry/Scaly -Color (Crsitina-wound Skin Appearance) No Abnormality Assessed -Temperature (Cristina-wound Skin No Abnormality Appearance) (Pt Warm) -Tenderness on Palpation (Cristina-wound No Skin Appearance) -Ulcer Cleansing Wound Cleanser -Foul Odor after Cleansing No [Edema Assessment] -Lower Limb Edema Present No -Left Calf (cm) 57.8 -Left Ankle (cm) 36 - Nurse 2 - General Ulcer CM Notes Start: 04/24/17 16:15 Freq: Status: Active Protocol: Activity Type Activity Date Activity User E-Sign Co-Sign Detail Recorded Client Recorded Date Recorded By Document 05/17/17 11:34 MW [id number] 05/17/17 11:40 MW 05/17/17 11:34 Wound Center Nurse 2 [Procedure/Treatment] #2 Left 3rd Toe- Plantar -Time 11:34 -Correct Patient Yes -Correct Side, Site, Position Yes -Correct Procedure Yes -Procedure Performed No -Post Debridement Size (cm) - Length 0 -Post Debridement Size (cm) - Width 0 -Post Debridement Size (cm) - Depth 0 -Total Square Cm 0 -Wound/Ulcer Outcome Healed- Epithelialized -Ulcer Cleansing Rinsed/ Irrigated with Saline -Foul Odor after Cleansing No -Bleeding Controlled with NA -Treatment Response Procedure Tolerated Well [See Physician Procedure note for Specifics] Pain Scale: 0-10 Numeric [Pain] -Is Patient Pain Free? Yes Musculoskeletal: - - Patient denies tenderness or pain to area Neurological: Motor Exam 5/5 strength throughout - lower extremity Psych/Mental Status: Normal Affect, Appropriate Debridement Note Post-Debridement Measurements/Treatment WC - Nurse 2 - General Ulcer CM Notes Start: 04/24/17 16:15 Freq: Status: Active Protocol: Activity Type Activity Date Activity User E-Sign Co-Sign Detail Recorded Client Recorded Date Recorded By Document 04/24/17 16:55 MW [id number] 04/24/17 17:02 MW Document 05/03/17 11:06 MW [id number] 05/03/17 11:17 MW Document 05/10/17 09:35 MW [id number] 05/10/17 09:49 MW Document 05/17/17 11:34 MW [id number] 05/17/17 11:40 MW 04/24/17 05/03/17 05/10/17 16:55 11:06 09:35 Wound Center Nurse 2 #2 Left 3rd Toe- Plantar -Time 16:55 11:07 09:36 -Correct Patient Yes Yes Yes -Correct Side, Site, Position Yes Yes Yes -Correct Procedure Yes Yes Yes -Procedure Performed Yes Yes Yes -Type of Procedure Debridement Debridement Debridement -Clinical Debridement Subcutaneous Subcutaneous Subcutaneous -Post Debridement Size (cm) - Length 0.4 0.6 0.5 -Post Debridement Size (cm) - Width 1.0 1.8 1.5 -Post Debridement Size (cm) - Depth 0.1 0.2 0.2 -Total Square Cm 0.40 1.08 0.75 -Wound/Ulcer Outcome Not Healed Not Healed Not Healed -Ulcer Cleansing Rinsed/ Rinsed/ Rinsed/ Irrigated with Irrigated with Irrigated with Saline Saline Saline -Foul Odor after Cleansing No No No -Bioengineered Tissue No No No -Bleeding Controlled with Pressure Pressure Pressure -Treatment Response Procedure Procedure Procedure Tolerated Well Tolerated Well Tolerated Well # 1 Left Posterior Calf (deep tissue injury) -Time 16:55 11:07 -Correct Patient Yes Yes -Correct Side, Site, Position Yes Yes -Correct Procedure Yes Yes -Procedure Performed No No -Post Debridement Size (cm) - Length 4.2 0 -Post Debridement Size (cm) - Width 4.0 0 -Post Debridement Size (cm) - Depth 0.1 0 -Total Square Cm 16.80 0 -Wound/Ulcer Outcome Not Healed Healed- Epithelialized -Ulcer Cleansing Not Cleansed Not Cleansed -Foul Odor after Cleansing No -Bioengineered Tissue No -Bleeding Controlled with NA NA -Treatment Response Procedure Procedure Tolerated Well Tolerated Well Pain Scale: 0-10 Numeric Is Patient Pain Free? Yes Yes Yes 05/17/17 11:34 Wound Center Nurse 2 #2 Left 3rd Toe- Plantar -Time 11:34 -Correct Patient Yes -Correct Side, Site, Position Yes -Correct Procedure Yes -Procedure Performed No -Type of Procedure -Clinical Debridement -Post Debridement Size (cm) - Length 0 -Post Debridement Size (cm) - Width 0 -Post Debridement Size (cm) - Depth 0 -Total Square Cm 0 -Wound/Ulcer Outcome Healed- Epithelialized -Ulcer Cleansing Rinsed/ Irrigated with Saline -Foul Odor after Cleansing No -Bioengineered Tissue -Bleeding Controlled with NA -Treatment Response Procedure Tolerated Well # 1 Left Posterior Calf (deep tissue injury) -Time -Correct Patient -Correct Side, Site, Position -Correct Procedure -Procedure Performed -Post Debridement Size (cm) - Length -Post Debridement Size (cm) - Width -Post Debridement Size (cm) - Depth -Total Square Cm -Wound/Ulcer Outcome -Ulcer Cleansing -Foul Odor after Cleansing -Bioengineered Tissue -Bleeding Controlled with -Treatment Response Pain Scale: 0-10 Numeric Is Patient Pain Free? Yes Assessment/Plan Active Problems Pressure ulcer of other site, stage 3 (Acute) Neuropathic ulcer of left foot with fat layer exposed (Acute) Delayed wound healing (Acute) Lower extremity edema (Acute) Malnutrition (Acute) Assessment: See diagnoses Plan: Patient was examined and evaluated again today. Debridement was completed of hyperkeratotic overlying tissue. The previous ulcer was noted to be healed at this time. She is to continue to keep compression on lower legs even though she is healed. Patient has been using surepress bilateral for compression. Discussed importance of adequate nutrition, especially increased protein intake. She is to offload as much as possible even after being healed. Discussed certain offloading padding options if needed in the future as well as different shoe stores to make sure she is fitted with appropriate shoe size. She is not diabetic but has neuropathy. Patient is to monitor her feet daily to avoid any further injuries due to the patient not having the best sensation in her feet. Likely would benefit from accommodative orthotics. She will be discharged at this time from the wound healing center, but orders were placed to transfer care over to [facility] to be evaluated and worked up for her lymphedema. She is to monitor for redness, pus, malodor, warmth, pain, swelling of the foot as well as for N/V/F/C and go to the ED with these. Call with questions.
== END 2017-05-19 23:59 ==
LOC: WC 10:00
PROVIDERS: Family Provider Internal Medicine; PCP Internal Medicine; Visit Provider Podiatrist
DX: L89.893 Pressure ulcer of other site, stage 3 (principal); R60.0 Localized edema; G62.9 Polyneuropathy, unspecified; Z87.891 Personal history of nicotine dependence
CPT/HCPCS: 11042; 93970; 99212; 99213; G0463

== ENCOUNTER 2017-06-12 11:00 | Outpatient (RCR) | payer OTHER, SELFPAY ==
--- NOTE | 2017-05-30 10:43 | HP.OTEVAL_ITS ---
Patient's Visit Information EVE ROMERO is a 36 year old F, referred to Occupational Therapy by Ángel Lezama DPM, with a diagnosis of LE lymphedema. Date of Evaluation: 05/29/17 Occupational Therapist: MARCELA Parikh/Yolie, CHT - Subjective Subjective: Pt states she had had cellulitis x3 pt states the first two occured almost a year a part and her last was early April. Pt states she was using compression socks- but she is not sure if she is using the correct compression. pt is unemployed-. pt is right handed- but noted left UE is more swollen then right. pt states she has been using surepress to assist with her edema. pt states it is difficult for her to wrap her LE. Pt states her is assisting her but he works during the day and can not wrap her LE during the day. pt states the wrap does slide down when she moves around more. - Pain bilateral feet 4 Pain Intensity Range: 1, 9 - Lymphedema (Circumferential Measure) Mid-foot: R/L 26cm/27cm Ankle: R/L 27cm/31cm Lower calf: R/L 39cm/42cm Largest calf: R/L 57cm/57cm Below knee: R/L 51cm/ 48cm - Lower Limb Functional Index Lower Extremity Functional Score: 50 - Goals Demonstrate a 20% reduction in edema by d/c: Yes Demonstrate adequate knowledge of self-massage by 2nd week: Yes Demonstrate adequate knowledge skin care/prec by 2nd week: Yes Demonstrate adequate knowledge therapeutic exercises by d/c: Yes Select approp compression garment w/donning/care/wear by d/c: Yes Voice need to replace compression garment every 4-6mo by dc: Yes - Rehabilitation General Assessment: pt demo with LE swelling based on clinical reasoning and assessment pt demo with symptoms consistant with LE lymphedema. pt would benefit from therapy services to ed. pt on mtg of LE lymphedema. Rehabilitation Potential: Good - Anticipated Interventions Anticipated Interventions: Education re Diagnosis, Manual Lymph Drainage, Education re Life-long lymphedema Management, Education re Skin Care and Precautions, Education re Self Massage Techniques, Education re Correct Donning Tech,Care&Wearing Sched Comp Garments - Visit Plan Frequency: Every Other Week Duration: 2 Months TEXT: Thank you for the opportunity to evaluate your patient. For Medicare and Medicare HMO plans, please review the plan of care and approve it. It will need to be FAXED BACK to us at [phone] for Medicare purposes. Please let me know if there are questions or concerns regarding this plan of care. Physician Signature: Date:
--- NOTE | 2017-07-31 10:51 | HP.OT.NRP ---
HP - Discharge Summary - Patient Information EVE ROMERO was seen in my office for initial evaluation on 05/29/17. The following Plan of Care was established for this patient: Initial Frequency: Every Other Week Initial Duration: 2 Months Plan: call in 3 weeks - Anticipated Interventions Anticipated Interventions: Education re Diagnosis, Manual Lymph Drainage, Education re Life-long lymphedema Management, Education re Skin Care and Precautions, Education re Self Massage Techniques, Education re Correct Donning Tech,Care&Wearing Sched Comp Garments This patient was last seen in our office 06/12/17. Pertinent comments regarding their Occupational therapy will appear below: PT was seen for 2 visits- last seen on June 12- pt stated she did order compression hose but had not recived them yet- pt stated no question on lymphedema or ex. to assist in mtg. of lymphedema- pt was to call in three weeks to follow-up with therapist to ensure compression hose were fitting and no question- pt has not done so at this time pt is D/C due to time laps and no further apts scheduled. At this point I will be discontinuing this patient from occupational therapy. I would be happy to see this patient again in the future if found appropriate by the physician. Thank you! Naomie Olivarez, OTR/L, CHT
== END 2017-06-12 19:00 | disposition home or self-care (01) ==
LOC: OT 11:00
PROVIDERS: Family Provider Internal Medicine; PCP Internal Medicine; Visit Provider Podiatrist
DX: I89.0 Lymphedema, not elsewhere classified (principal)
CPT/HCPCS: 97166; 97530